=== PATIENT | female | born 1995 | race Caucasian/White ===

== ENCOUNTER 2019-11-24 05:58 | Inpatient (IN) | payer OTHER ==
--- OUTSIDE RECORDS SUMMARY | 2019-11-24 06:01 | XMS REPORT | Continuity of Care Document ---
:1995 External Reference #:[id number] Author Name Kayli Boo MD (transmitted by agent of provider Arabella Hager) Address [address] [facility] [place] [address] Care Team Providers Name Role Phone Adriano Mak MD Care Team Information Hotel Office Manager [phone] Adelfo Chatman M.D. - Family Care Team Information Hotel Office Manager [phone] Medicine Problems Active Problems Provider Date Twin , monochorionic/diamniotic, second Payton Wagner MD Onset: trimester Social History Type Date Description Comments Sex Unknown Tobacco Use Start: Unknown Never Smoked Cigarettes ETOH Use Occasionally consumes alcohol Recreational Drug Use Denies Drug Use Tobacco Use Start: Unknown Patient has never smoked Smoking Status Reviewed: 11/19/19 Patient has never smoked Exercise Type/Frequency Exercises regularly Seat Belt/Car Seat Always uses seat belt Allergies, Adverse Reactions, Alerts Description No Known Drug Allergies Medications Active Medications SIG Qnty Indications Ordering Provider Date PNV-Dha 1 by mouth every Unknown 27-0.6-0.4-300mg day Capsules Aspirin 1 by mouth every Unknown 81mg Chewtabs day Medications Administered in Office Medication SIG Qnty Indications Ordering Provider Date PT SCRN Tbco Id as Non User Kayli Boo MD 11/19/2019 Injection PT SCRN Tbco Id as Non User Astrid Chandler CNM 05/19/2019 Injection No PT Tbco SCRN RNG JEAN PAUL Lay-C 02/24/2019 Injection PT SCRN Tbco Id as Non User DestinyJEAN PAUL Khan-C 02/24/2019 Injection No PT Tbco SCRN RNG DestinyJEAN PAUL Khan-C 02/20/2018 Injection PT SCRN Tbco Id as Non User Destiny NagelFRANK 02/20/2018 Injection Immunizations CPT Code Status Date Vaccine Lot # [id number] Given 09/28/2019 Tetnus, Diptheria Toxoids And Acellular Pertussis, [id number] PT > 7Yrs Old [id number] Given 06/16/2019 Influenza Vaccine Quadrivalent Preser/Antibiotic [id number] Free Im Use Vital Signs Date Vital Result Comment 11/19/2019 12:56pm BP Systolic Recheck 140 mmHg BP Diastolic Recheck 90 mmHg 05/19/2019 10:48am BP Systolic 108 mmHg BP Diastolic 66 mmHg Height 62.25 inches 5'2.25" Weight 218.00 lb BMI (Body Mass Index) 39.5 kg/m2 Last Menstrual Period [id number] 1 Parity 0 Results Test Acquired Date Facility Test Result H/L Range Note CBC Auto 11/22/2019 [facility] White Blood 7.3 10^3/uL Normal 3.5-10.8 [place] [address] Count [phone] Red Blood Count 3.91 10^6/uL Normal 3.70-4.87 Hemoglobin 11.0 g/dL Low 12.0-16.0 Hematocrit 33 % Low 35-47 Mean Corpuscular Volume 85 fL Normal 80-97 Mean Corpuscular Hemoglobin 28 pg Normal 27-31 Mean Corpuscular HGB Conc 33 g/dL Normal 31-36 Red Cell Distribution Width 14 % Normal 10-15 Platelet Count 245 10^3/uL Normal 150-450 Mean Platelet Volume 10.0 fL Normal 7.4-10.4 Abs Neutrophils 5.0 10^3/uL Normal 1.5-7.7 Abs Lymphocytes 1.6 10^3/uL Normal 1.0-4.8 Abs Monocytes 0.4 10^3/uL Normal 0-0.8 Abs Eosinophils 0.2 10^3/uL Normal 0-0.6 Abs Basophils 0.0 10^3/uL Normal 0-0.2 Abs Nucleated RBC 0.0 10^3/uL Granulocyte % 68.9 % Lymphocyte % 21.5 % Monocyte % 6.0 % Eosinophil % 3.0 % Basophil % 0.6 % Nucleated Red Blood Cells % 0.1 Type And Screen 11/22/2019 [facility] Patient [place] [address] [phone] Antibody Screen NEGATIVE CBC With No 11/19/2019 [facility] White Blood 7.6 10^3/uL Normal 3.5-10.8 [place] [address] Count [phone] Red Blood Count 3.73 10^6/uL Normal 3.70-4.87 Hemoglobin 10.7 g/dL Low 12.0-16.0 Hematocrit 32 % Low 35-47 Mean Corpuscular Volume 85 fL Normal 80-97 Mean Corpuscular Hemoglobin 29 pg Normal 27-31 Mean Corpuscular HGB Conc 34 g/dL Normal 31-36 Red Cell Distribution Width 14 % Normal 10-15 Platelet Count 230 10^3/uL Normal 150-450 Mean Platelet Volume 9.9 fL Normal 7.4-10.4 Laboratory test 11/19/2019 [facility] Ast (Sgot) 19 U/L Normal 13-39 1 [place] [address] [phone] Alt 12 U/L Normal 7-52 2 Laboratory test 11/19/2019 [facility] Genital For GRP B SEE RESULT 3 [place] [address] Strep Only BELOW [phone] Tot Prot 24HR 11/12/2019 [facility] Ur TP Concentration 11 mg/ [place] [address] Obstetric [phone] Ur Tot Protein/24Hr Obstetric 280 mg/24Hr High 0-165 Urine Collection Time OB 24 hr Urine Total Volume OB 2550 mL Comp Metabolic 11/11/2019 [facility] Sodium 138 mmol/L Normal 135-145 [place] [address] [phone] Potassium 4.2 mmol/L Normal 3.5-5.0 Chloride 106 mmol/L Normal 101-111 Co2 Carbon Dioxide 22 mmol/L Normal 22-32 Anion Gap 10 mmol/L Normal 2-11 Glucose 81 mg/dL Normal 70-100 Blood Urea Nitrogen 6 mg/dL Normal 6-24 Creatinine 0.71 mg/dL Normal 0.51-0.95 BUN/Creatinine Ratio 8.5 Normal 8-20 Calcium 9.1 mg/dL Normal 8.6-10.3 Total Protein 5.9 g/dL Low 6.4-8.9 Albumin 3.3 g/dL Normal 3.2-5.2 Globulin 2.6 g/dL Normal 2-4 Albumin/Globulin Ratio 1.3 Normal 1-3 Total Bilirubin 0.30 mg/dL Normal 0.2-1.0 Alkaline Phosphatase 111 U/L High 34-104 Alt 13 U/L Normal 7-52 Ast 18 U/L Normal 13-39 Egfr Non- 100.3 >60 Egfr 121.4 >60 4 Laboratory test 11/11/2019 [facility] Uric Acid 6.5 mg/dL Normal 2.3-6.6 5 [place] [address] [phone] CBC With No Diff 11/11/2019 [facility] White 6.3 Normal 3.5- 10.8 [place] [address] Blood 10^3/uL [phone] Count Red Blood Count 3.69 10^6/uL Low 3.70-4.87 Hemoglobin 10.7 g/dL Low 12.0-16.0 Hematocrit 32 % Low 35-47 Mean Corpuscular Volume 87 fL Normal 80-97 Mean Corpuscular Hemoglobin 29 pg Normal 27-31 Mean Corpuscular HGB Conc 34 g/dL Normal 31-36 Red Cell Distribution Width 14 % Normal 10-15 Platelet Count 258 10^3/uL Normal 150-450 Mean Platelet Volume 10.1 fL Normal 7.4-10.4 CBC With No 09/14/2019 [facility] White Blood 8.2 10^3/uL Normal 3.5-10.8 [place] [address] Count [phone] Red Blood Count 3.60 10^6/uL Low 3.70-4.87 Hemoglobin 11.4 g/dL Low 12.0-16.0 Hematocrit 33 % Low 35-47 Mean Corpuscular Volume 92 fL Normal 80-97 Mean Corpuscular Hemoglobin 32 pg High 27-31 Mean Corpuscular HGB Conc 34 g/dL Normal 31-36 Red Cell Distribution Width 13 % Normal 10-15 Platelet Count 308 10^3/uL Normal 150-450 Mean Platelet Volume 8.6 fL Normal 7.4-10.4 Laboratory 09/14/2019 [facility] Glucose 1 HR 121 mg/dL Normal 70-160 6 [place] [address] Post Prandial [phone] Drug Screen 07/13/2019 [facility] Urine None [place] [address] Hydrocodone Detected Detect Clinic [phone] Screen Urine Oxycodone Screen None Detected None Detect Urine Fentanyl Screen None Detected None Detect Urine Methadone Screen None Detected None Detect Urine Buprenorphine Screen None Detected None Detect Urine Amphetamine Screen None Detected None Detect Urine Barbiturates Screen None Detected None Detect Urine Benzodiazepine Screen None Detected None Detect Urine Cannabinoids Screen None Detected None Detect Urine Cocaine Screen None Detected None Detect Urine Opiates Screen None Detected None Detect Urine Phencyclidine Screen None Detected None Detect 7 GC/Chlamydia Dna 07/01/2019 [facility] GCCHL Disclaimer (SEE NOTE) 8 Probe [place] [id number] [phone] Chlamydia trachomatis [place] Negative Negative Neisseria gonorrhoeae (GC) [place] Negative Negative Laboratory test 07/01/2019 [facility] Miscellaneous See Comment 9 [place] [address] Test [phone] Panorama 06/16/2019 Andre Report Summary See Notes Normal 10 Test Report Note See Notes Normal Trisomy 13 Age-Based Risk Fraction <1/02638 Normal 11 Trisomy 13 Risk Score Text <1/10,000 (<0.01 <SEE NOTE> Normal 12 Trisomy 13 Risk Score Fraction <1/43028 Normal Trisomy 13 Result Text Low Risk Normal Trisomy 13 Result Comments See Notes Normal Trisomy 18 Age-Based Risk Fraction 09/7945 Normal Trisomy 18 Risk Score Text <1/10,000 (<0.01 <SEE NOTE> Normal 13 Trisomy 18 Risk Score Fraction <1/23690 Normal Trisomy 18 Result Text Low Risk Normal Trisomy 18 Result Comments See Notes Normal Trisomy 21 Age-Based Risk Fraction 09/3002 Normal Trisomy 21 Risk Score Text <1/10,000 (<0.01 <SEE NOTE> Normal 14 Trisomy 21 Risk Score Fraction <1/20134 Normal Trisomy 21 Result Text Low Risk Normal Trisomy 21 Result Comments See Notes Normal Monosomy X Age-Based Risk Fraction 09/1689 Normal Monosomy X Risk Score <0.01 % Normal Monosomy X Risk Score Text <1/10,000 (<0.01 <SEE NOTE> Normal 15 Monosomy X Risk Score Fraction <1/54811 Normal Monosomy X Result Text Low Risk Normal Monosomy X Result Comments See Notes 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-Based 09/1999 Normal 16 Risk Score 22q11.2 Deletion Syndrome Risk Score 09/8999 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 Risk Score Text 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 Result Text Low Risk 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 Result See Notes Normal Interpretation Zygosity Monozygotic Gender of Fetus Female Gender of Second Fetus Female Fraction (in %) 11.4 % Fraction 11.4% Footnotes See Notes 17 Boiler Plate Text See Notes 18 References See Notes 19 Approvals See Notes 20 Contacts See Notes 21 Urine Culture 06/16/2019 [facility] Urine SEE RESULT 22 [place] [address] Culture BELOW Sensitivities [phone] HIV 1&2 p24 06/16/2019 [facility] HIV 4th [place] [address] Generation [phone] Lead 06/16/2019 [facility] Lead,Venous, 2.4 g/dL 0.0-4.9 23 [place] [address] B [phone] Venous/Capillary Venous Submitting Laboratory Phone [phone] Type And Screen 06/16/2019 [facility] Patient [place] [address] [phone] Antibody Screen NEGATIVE CBC With No 06/16/2019 [facility] White Blood 8.8 10^3/uL Normal 3.5-10.8 [place] [address] Count [phone] Red Blood Count 4.21 10^6/uL Normal 3.70-4.87 Hemoglobin 13.0 g/dL Normal 12.0-16.0 Hematocrit 38 % Normal 35-47 Mean Corpuscular Volume 90 fL Normal 80-97 Mean Corpuscular Hemoglobin 31 pg Normal 27-31 Mean Corpuscular HGB Conc 34 g/dL Normal 31-36 Red Cell Distribution Width 13 % Normal 10-15 Platelet Count 311 10^3/uL Normal 150-450 Mean Platelet Volume 8.4 fL Normal 7.4-10.4 PNL No 06/16/2019 [facility] Rubella Screen Immune Immune 25 [place] [address] [phone] Hemoglobin A1c 5.3 % Normal 4.0-5.6 26 Hepatitis B Surface Ag Nonreactive Nonreactive 27 Syphillis Igg W/Reflex RPR Negative Negative 28 1 [id number] 2 [id number] 3 SEE RESULT BELOW Name: RUPERTO VILA : [address]: Kayli Boo MD Acct: [id number] Unit: [id number] AGE: 24 Location: [facility] Re11/19/19 SEX: F Status: REG REF SPEC: [id number] JORGE LUIS: 11/19/19-[address] [facility] [address]: Kayli Boo MD REQ: [id number] RECD: 11/19/19834 STATUS: COMP _ SOURCE: CER/VAG/RE SPDESC: ORDERED: Grp B Strp Scrn COMMENTS: [id number] QUERIES: Is Patient Penicillin Allergic? N Is patient penicillin allergic and/or sensitivities needed? N Provider Requisition # C77#[id number]_ Procedure Result Reported Site Group B Strep Culture Screen Final 11/21/19- 1028 ML Group B Strep Screen Negative * ML - Main Lab . END OF REPORT DEPARTMENT OF PATHOLOGY, [address] [place] [address] Rio Rahman M.D. Director [facility] # [id number] 4 Because ethnic data is not always readily available, this report includes an eGFR for both -Americans and non- Americans. The National Kidney Disease Education Program (NKDEP) does not endorse the use of the MDRD equation for patients that are not between the ages of 18 and 70, are , have extremes of body size, muscle mass, or nutritional status, or are non- or non-. According to the National Kidney Foundation, irrespective of diagnosis, the stage of the disease is based on the level of kidney function: Stage Description GFR(mL/min/1.73 m(2)) 1 Kidney damage with normal or decreased GFR 90 2 Kidney damage with mild decrease in GFR 60-89 3 Moderate decrease in GFR 30-59 4 Severe decrease in GFR 15-29 5 Kidney failure <15 (or dialysis) 5 [id number] 6 [id number] 7 The specimen was tested at the listed cutoffs: Drug Class Test level (ng/mL) Hydrocodone 300 Oxycodone 100 Fentanyl 1 Methadone 150 Buprenorphine 5 Amphetamines 500 Barbiturates 200 Benzodiazepines 200 Cocaine 150 Cannabinoids 50 Opiates 300 PCP 25 Specimen was received without chain of custody. Results should be used for medical purposes only. 8 As with all diagnostic procedures, the laboratory results obtained should be used in conjunction with other clinical information available to the physician, including confirmation by another method, as applicable. 9 Test Result Flag Unit RefValue Controlled Substance Monitoring, U List Patient's Current UNK Medications ADDITIONAL INFORMATION Accuracy and completeness of declared medications on reports solely dependent on information submitted by client. Creatinine, U 9.8 mg/dL Specific [place] <=1.001 Manually Verified pH 7.1 Oxidants Negative REFERENCE VALUE Cutoff: 200 mg/L Comment Invalid specimen. Amphetamines TNP Drug Immunoassay Panel, U was cancelled on 07/03/2019 at 15:05; Test canceled due to suspected specimen adulteration, substitution, or an invalid specimen. Codeine TNP Targeted Opioid Screen, U was cancelled on 07/03/2019 at 15:06; Test canceled due to suspected specimen adulteration, substitution, or an invalid specimen. Opioid Interpretation TNP Targeted Opioid Screen, U was cancelled on 07/03/2019 at 15:06; Test canceled due to suspected specimen adulteration, substitution, or an invalid specimen. Alprazolam TNP Targeted Benzodiazepine Screen, U was cancelled on 07/03/2019 at 15:06; Test canceled due to suspected specimen adulteration, substitution, or an invalid specimen. Benzodiazepine TNP Interpretation Targeted Benzodiazepine Screen, U was cancelled on 07/03/2019 at 15:06; Test canceled due to suspected specimen adulteration, substitution, or an invalid specimen. Test Performed by: [facility] [address] [place] [address] Manager Leasing: Jay Peng M.D. Ph.D.; CLIA# [id number] 10 LOW RISK 11 <1/10,000 (<0.01%) 12 <1/10,000 (<0.01%) 13 <1/10,000 (<0.01%) 14 <1/10,000 (<0.01%) 15 <1/10,000 (<0.01%) 16 1/2,000 17 Condition tested excludes cases with evidence of and/or placental mosaicism. Prior risk for aneuploidy is based on maternal age and gestational age, where applicable. Panorama risk score is based on a priori risk and results of analysis of circulating placental DNA. Prior risk for microdeletion syndromes, if ordered, are based on overall disease prevalence in the population. This test will not i dentify all deletions associated with each disorder. This test has been validated on full region deletions only and may be unable to detect smaller deletions. 18 Testing Methodology DNA isolated from the maternal blood, which contains placental DNA, is amplified at specific loci using a targeted PCR assay and is sequenced using a high-throughput sequencer. fraction is determi john using a proprietary algorithm incorporating data from single nucleotide polymorphism-based (SNP-based) next-generation sequencing [Amara Brown et al. Obstet Gynecol. 2014 Apr;124(2 Pt 1):210-8]. If the estimated fraction is ???2.8%, sequencing data is analyzed using a proprietary SNP-based algorithm to determine the copy number for chromosomes 13, 18, 21, X and Y [Kris Meade et al. Am J Ob stet Gynecol. 2014 Jul;211(5):527.e1-527.e17]. If ordered, specific microdeletions will be evaluated using similar methodology [Cali BELTRAN et al. Am J Obstet Gynecol. 2015 Oct;212(3):332.e1-9]. If a samp le fails to meet the quality threshold, or the fraction is insufficient , an additional algorithm is utilized to determine whether there is an increased risk for triploidy, trisomy 18 and trisomy 1 3 [Lauren singh al. The Human Genetics Conference. [facility]. January 262016]. However, ???some samples will not produce a result due to failure to meet the necessary quality thresholds. Disclaimers This test has been validated on women with a carr, twin or egg donor of at least nine weeks gestation. A result will not be available for higher order multiples and multiple gestation pre gnancies with an egg donor or surrogate, or bone marrow transplant recipients. Complete test panel is not available for twin gestations and pregnancies achieved with an egg donor or surrogate. For twin pregnancies with a fraction value below the threshold for analysis, a sum of the fractions for both twins will be reported. Findings of unknown significance will not be reported. As this ass ay is a screening test and not diagnostic, false positives and false negatives can occur. High risk test results need diagnostic confirmation by alternative testing methods. Low risk results do not full y exclude the diagnosis of any of the syndromes nor do they exclude the possibility of other chromosomal abnormalities or defects, which are not a part of this test. Potential sources of inaccurat e results include, but are not limited to, mosaicism, low fraction, limitations of current diagnostic techniques, or misidentification of samples. This test will not identify all deletions associa jo-ann with each microdeletion syndrome. This test has been validated on full region deletions only and may be unable to detect smaller deletions. Microdeletion risk score is dependent upon fraction, as deletions on the maternally inherited copy are difficult to identify at lower fractions. Test results should always be interpreted by a clinician in the context of clinical and familial data w ith the availability of genetic counseling when appropriate. The Panorama test was developed by [facility] a laboratory certified under the Clinical Laboratory Improvement Amendments (CLIA). This test has not been cleared or approved by the U.S, Food and Drug Administration (FDA). 19 Please refer to the attached PDF report 20 Test performed by [facility]. [address] [place] [address] CLIA ID #[id number] Nara Garcia Ph.D., [facility], Information Assurance 21 IF THE ORDERING PROVIDER HAS QUESTIONS OR WISHES TO DISCUSS THE RESULTS, PLEASE CONTACT US AT [phone] #3. Ask for the [facility] genetic counselor production supv. 22 SEE RESULT BELOW Name: RUPERTO VILA : [address]: Maksim Moise DO Acct: [id number] Unit: [id number] AGE: 23 Location: [facility] Re06/16/19 SEX: F Status: REG REF SPEC: [id number] JORGE LUIS: 06/16/[address]: Maksim Moise DO REQ: [id number] RECD: 06/16/190632 STATUS: COMP _ SOURCE: URINE SPDESC: ORDERED: Urine Culture COMMENTS: [id number] Urine Source: Random Procedure Result Reported Site Urine Culture Final 06/17/19- 1621 ML No Growth (<1,000 CFU/mL) * ML - Main Lab . END OF REPORT DEPARTMENT OF PATHOLOGY, [address] [place] [address] Rio Rahman M.D. Director [facility] # [id number] 23 ADDITIONAL INFORMATION Testing performed by Inductively Coupled Plasma-Mass Spectrometry (ICP-MS). This test was developed and its performance characteristics determined by [facility] in a manner consistent with CLIA requirements. This test has not been cleared or approved by the U.S. Food and Drug Administration. 24 Test Performed by: [address] [address] Manager Leasing: Jay Peng M.D. Ph.D.; CLIA# [id number] 25 [id number] 26 Therapeutic target for the treatment of diabetes mellitus patients is <7% HBA1C, and in selective patients <6.0%. Please refer to [place] [employer] diabetic care guidelines for further information. 27 [id number] Procedures Date Code Description Status 11/19/2019 20474 Non-Stress Test Completed 11/11/2019 56722 Biophysical Profile Without Non Stress Test Completed 11/11/2019 09667 Echography Uterus Follow-Up Or Repeat Completed 11/11/2019 66325 Ultrasound,Preg,Transabdomonal;Each Additional Gestation Completed 11/04/2019 88766 Non-Stress Test Completed 10/28/2019 53305 Biophysical Profile Without Non Stress Test Completed 10/28/2019 27434 Echography Uterus Follow-Up Or Repeat Completed 10/28/2019 06477 Ultrasound,Preg,Transabdomonal;Each Additional Gestation Completed 10/21/2019 23471 Non-Stress Test Completed 10/14/2019 30241 Echography Uterus Follow-Up Or Repeat Completed 10/14/2019 66891 Ultrasound,Preg,Transabdomonal;Each Additional Gestation Completed 09/28/2019 48729 Echography Uterus Follow-Up Or Repeat Completed 09/28/2019 41106 Ultrasound,Preg,Transabdomonal;Each Additional Gestation Completed 09/14/2019 38010 Nuchal Translucency Ultrasound /First Gestation Completed 09/14/2019 47693 Echography Uterus Follow-Up Or Repeat Completed 08/27/2019 34205 Echography Uterus Follow-Up Or Repeat Completed 08/27/2019 03871 Echography Uterus Follow-Up Or Repeat Completed 08/27/2019 16570 Ultrasound,Preg,Transabdomonal;Each Additional Gestation Completed 08/27/2019 51666 Ultrasound,Preg,Transabdomonal;Each Additional Gestation Completed 08/12/2019 58280 Echography Uterus Follow-Up Or Repeat Completed 07/27/2019 82306 Echography Uterus Follow-Up Or Repeat Completed 07/27/2019 78324 Ultrasound,Preg,Transabdomonal;Each Additional Gestation Completed 07/13/2019 50648 Ultrasound,Preg,Transabdomonal;Each Additional Gestation Completed 07/13/2019 12001 Echography Uterus Complete Completed 07/01/2019 43306 Echography Uterus Follow-Up Or Repeat Completed 07/01/2019 70630 Ultrasound,Preg,Transabdomonal;Each Additional Gestation Completed 06/16/2019 31347 Echography Uterus Follow-Up Or Repeat Completed 06/16/2019 07856 Ultrasound,Preg,Transabdomonal;Each Additional Gestation Completed Medical Devices Description No Information Available Encounters Type Date Location Provider Dx Diagnosis Office Visit 11/19/2019 [facility] Kayliamita Boo, O30.033 Twin , 10:40a MD marreroriobahman/lulin iotic, third trimester Z01.818 Encounter for other preprocedural examination Assessments Date Code Description Provider 11/19/2019 O30.033 Twin , monochorionic/diamniotic, Kayli Boo MD third trimester 11/19/2019 Z01.818 Encounter for other preprocedural Kayli Boo MD examination 11/11/2019 O30.033 Twin , monochorionic/diamniotic, Arron Hand M.D. third trimester 11/11/2019 O30.033 Twin , monochorionic/diamniotic, Arron Hand M.D. third trimester 11/11/2019 O30.033 Twin , monochorionic/diamniotic, Ultrasounds third trimester 11/04/2019 O30.033 Twin , monochorionic/diamniotic, Payton Wagner MD third trimester 10/28/2019 O30.033 Twin , monochorionic/diamniotic, Maksim Moise JR , DO third trimester 10/28/2019 O30.033 Twin , monochorionic/diamniotic, Maksim Moise JR , DO third trimester 10/28/2019 O30.033 Twin , monochorionic/diamniotic, Ultrasounds third trimester 10/21/2019 O30.033 Twin , monochorionic/diamniotic, Arron Hand M.D. third trimester 10/14/2019 O30.032 Twin , monochorionic/diamniotic, Kayli Boo MD second trimester 10/14/2019 O30.033 Twin , monochorionic/diamniotic, Kayli Boo MD third trimester 10/14/2019 O30.032 Twin , monochorionic/diamniotic, Ultrasounds second trimester 09/28/2019 O30.032 Twin , monochorionic/diamniotic, Payton Wagner MD second trimester 09/28/2019 Z23 Encounter for immunization Payton Wagner MD 09/28/2019 O30.033 Twin , monochorionic/diamniotic, Payton Wagner MD third trimester 09/28/2019 O30.032 Twin , monochorionic/diamniotic, Ultrasounds second trimester 09/14/2019 Z14.8 Genetic carrier of other disease Arron Hand M.D. 09/14/2019 Z36.9 Encounter for screening, Payton Wagner MD unspecified 09/14/2019 O30.032 Twin , monochorionic/diamniotic, Arron Hand M.D. second trimester 09/14/2019 O30.032 Twin , monochorionic/diamniotic, Ultrasounds second trimester 09/14/2019 O30.032 Twin , monochorionic/diamniotic, Arron Hand M.D. second trimester 09/14/2019 Z36.9 Encounter for screening, Laboratory unspecified 08/27/2019 O30.032 Twin , monochorionic/diamniotic, Maksim Moise JR , DO second trimester 08/27/2019 O30.032 Twin , monochorionic/diamniotic, Maksim Moise JR , DO second trimester 08/27/2019 O30.032 Twin , monochorionic/diamniotic, Ultrasounds second trimester 08/12/2019 O30.032 Twin , monochorionic/diamniotic, Payton Wagner MD second trimester 08/12/2019 O30.032 Twin , monochorionic/diamniotic, Payton Wagner MD second trimester 08/12/2019 O30.032 Twin , monochorionic/diamniotic, Ultrasounds second trimester 07/27/2019 O30.032 Twin , monochorionic/diamniotic, Maksim Moise JR , DO second trimester 07/27/2019 O30.032 Twin , monochorionic/diamniotic, Maksim Moise JR , DO second trimester 07/27/2019 O30.032 Twin , monochorionic/diamniotic, Ultrasounds second trimester 07/13/2019 Z36.3 Encounter for screening for Brigette Olea MD malformations 07/13/2019 O30.032 Twin , monochorionic/diamniotic, Brigette Olea MD second trimester 07/13/2019 Z36.3 Encounter for screening for Ultrasounds malformations 07/01/2019 O30.032 Twin , monochorionic/diamniotic, Maksim Moise JR , DO second trimester 07/01/2019 O30.032 Twin , monochorionic/diamniotic, Maksim Moise JR , DO second trimester 07/01/2019 O30.032 Twin , monochorionic/diamniotic, Ultrasounds second trimester 06/16/2019 Z36.9 Encounter for screening, Payton Wagner MD unspecified 06/16/2019 O30.032 Twin , monochorionic/diamniotic, Maksim Moise JR , DO second trimester 06/16/2019 Z23 Encounter for immunization Payton Wagnre MD 06/16/2019 O30.032 Twin , monochorionic/diamniotic, Maksim Moise JR , DO second trimester 06/16/2019 Z36.9 Encounter for screening, Laboratory unspecified 06/16/2019 Z23 Encounter for immunization Laboratory 06/16/2019 O30.032 Twin , monochorionic/diamniotic, Ultrasounds second trimester Plan of Treatment Future Appointment(s):12/29/2019 3:30 pm - Kayli Boo MD at [facility]12/01/2019 11:00 am - Ruperto Prieto CNM at [facility]11/24/2019 7:45 am - Arron Hand M.D. at [facility] O R011/24/2019 7:45 am - Kayli Boo MD at [facility] O R011/19/2019 - Kayli Boo MDO30.033 Twin , monochorionic/diamniotic, third trimesterComments:Pt with gestational hypertension and had normal 24 hour urine collection last week. Pt with elevatedBP today so will check lab work again today. Pt is to f/u for preop on Saturday this week and has primary scheduled at 11/24/19 at 37 weeks. Pt accepts risk associate with section to include but not limited to infection bleeding damage to internal organs pain scarring need for further surgery. consent form personally reviewed and signed with pt. All questions answered.Z01.818 Encounter for other preprocedural examination Functional Status Functional Condition Comment Date Status .None Active Mental Status Description No Information Available Referrals Refer to Reason for Referral Status Appt Date Center Pt with mono-di twins at 22 wks. Cardiac views Closed 09/17 have been inadequate for the past two sonos, so she needs a Level 2. [address] [place], [place].[address] [phone]
--- OUTSIDE RECORDS SUMMARY | 2019-11-24 06:01 | XMS REPORT | Continuity of Care Document ---
:1995 External Reference #:[id number] Author Name Kayli Boo MD (transmitted by agent of provider Cece Green) Address [address] [facility] [place] [address] Care Team Providers Name Role Phone Adriano Mak MD Care Team Information [employer] [phone] Adelfo Chatman M.D. - Family Care Team Information [employer] Medicine Problems Active Problems Provider Date Twin , monochorionic/diamniotic, second Payton Wagner MD Onset: trimester Social History Type Date Description Comments Sex Unknown Tobacco Use Start: Unknown Never Smoked Cigarettes ETOH Use Occasionally consumes alcohol Recreational Drug Use Denies Drug Use Tobacco Use Start: Unknown Patient has never smoked Exercise Type/Frequency Exercises [...] 05/19/2019 Injection No PT Tbco SCRN RNG Destiny Nagel, ANP-C 02/24/2019 Injection PT SCRN Tbco Id as Non User Destiny Shona, ANP-C 02/24/2019 Injection No PT Tbco SCRN RNG Destinytomasz Nagel, ANP-C 02/20/2018 Injection PT SCRN Tbco Id as Non User Destiny Nagel, ANP-C 02/20/2018 Injection Immunizations CPT Code Status Date Vaccine Lot # [id number] Given 09/28/2019 Tetnus, Diptheria Toxoids And Acellular Pertussis, DC924 PT > 7Yrs Old [address] Given 06/16/2019 Influenza Vaccine Quadrivalent Preser/Antibiotic [id number] Free Im Use Vital Signs Date Vital Result Comment 05/19/2019 10:48am BP Systolic 108 mmHg BP Diastolic 66 mmHg Height 62.25 inches 5'2.25" Weight 218.00 lb BMI (Body Mass Index) 39.5 kg/m2 Last Menstrual Period 8971035 1 Parity 0 02/24/2019 7:44am BP Systolic 112 mmHg BP Diastolic 80 mmHg Height 62.25 inches 5'2.25" Weight 223.00 lb BMI (Body Mass Index) 40.5 kg/m2 Last Menstrual Period 2334766 0 Parity 0 Results Test Acquired Date Facility Test Result H/L Range Note Tot Prot 24HR 11/12/2019 [facility] Ur TP 11 mg/[place] [address] Concentration [phone] Obstetric Ur Tot Protein/24Hr Obstetric 280 mg/24Hr High 0-165 Urine Collection Time OB 24 hr Urine Total Volume OB 2550 mL Comp Metabolic 11/11/2019 [facility] Sodium 138 mmol/L Normal 135-145 [place] [address] [phone] Potassium 4.2 mmol/L Normal 3.5-5.0 Chloride 106 [...] Egfr Non- 100.3 >60 Egfr 121.4 >60 1 Laboratory test 11/11/2019 [facility] Uric Acid 6.5 mg/dL Normal 2.3-6.6 2 [place] [address] [phone] CBC With No Diff 11/11/2019 [facility] White 6.3 Normal 3.5- 10.8 [place] [address] Blood 10^3/uL [phone] Count Red Blood Count 3.69 10^6/uL Low [...] fL Normal 7.4-10.4 CBC With No 09/14/2019 [facility] White Blood 8.2 10^3/uL Normal 3.5-10.8 [place] [address] Count [phone] Red Blood Count 3.60 10^6/uL Low 3.70-4.87 Hemoglobin 11.4 g/dL Low 12.0-16.0 Hematocrit 33 % Low 35-47 Mean Corpuscular Volume 92 fL Normal 80-97 Mean Corpuscular Hemoglobin 32 pg High 27-31 Mean Corpuscular HGB Conc 34 g/dL Normal 31-36 Red Cell Distribution Width 13 % Normal 10-15 Platelet Count 308 10^3/uL Normal 150-450 Mean Platelet Volume 8.6 fL Normal 7.4-10.4 Laboratory 09/14/2019 [facility] Glucose 1 HR 121 mg/dL Normal 70-160 3 [place] [address] Post Prandial [phone] Drug Screen 07/13/2019 [facility] Urine [place] [address] Hydrocodone Detected Detect [facility] [phone] Screen Urine Oxycodone Screen None Detected None [...] Urine Phencyclidine Screen None Detected None Detect 4 GC/Chlamydia Dna 07/01/2019 [facility] GCCHL Disclaimer (SEE NOTE) [address] [place] [address] [phone] Chlamydia trachomatis Lachelle Negative Negative Neisseria gonorrhoeae (GC) Lachelle Negative Negative Laboratory test 07/01/2019 [facility] Miscellaneous Test See Comment [address] [place] [address] [phone] Panorama 06/16/2019 Andre Report Summary See Notes Normal 7 Test Report Note See Notes Normal Trisomy 13 Age-Based Risk Fraction <1/07209 Normal 8 Trisomy 13 Risk Score Text <1/10,000 (<0.01 <SEE NOTE> Normal 9 Trisomy 13 Risk Score Fraction <1/97228 Normal Trisomy 13 Result Text Low Risk Normal Trisomy 13 Result Comments See Notes Normal Trisomy 18 Age-Based Risk Fraction 09/7945 Normal Trisomy 18 Risk Score Text <1/10,000 (<0.01 <SEE NOTE> Normal 10 Trisomy 18 Risk Score Fraction <1/29293 Normal Trisomy 18 Result Text Low Risk Normal Trisomy 18 Result Comments See Notes Normal Trisomy 21 Age-Based Risk Fraction 09/3002 Normal Trisomy 21 Risk Score Text <1/10,000 (<0.01 <SEE NOTE> Normal 11 Trisomy 21 Risk Score Fraction <1/39766 Normal Trisomy 21 Result Text Low Risk Normal Trisomy 21 Result Comments See Notes Normal Monosomy X Age-Based Risk Fraction 09/1689 Normal Monosomy X Risk Score <0.01 % Normal Monosomy X Risk Score Text <1/10,000 (<0.01 <SEE NOTE> Normal 12 Monosomy X Risk Score Fraction <1/58010 Normal Monosomy X Result Text Low Risk Normal Monosomy X Result Comments See Notes 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-Based 09/1999 Normal 13 Risk Score 22q11.2 Deletion Syndrome Risk Score 09/8999 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 Risk Score Text 19,000 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 Result Text Low Risk 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0-4.9 20 [place] [address] B [phone] Venous/Capillary Venous Submitting Laboratory Phone [phone] Type And Screen 06/16/2019 [facility] Patient [place] [address] [phone] Antibody Screen NEGATIVE CBC With No 06/16/2019 [facility] White Blood 8.8 10^3/uL Normal 3.5-10.8 [place] [address] Count [phone] Red Blood Count 4.21 10^6/uL Normal 3.70-4.87 Hemoglobin 13.0 g/dL Normal 12.0-16.0 Hematocrit 38 % Normal 35-47 Mean Corpuscular Volume 90 fL Normal 80-97 Mean Corpuscular Hemoglobin 31 pg Normal 27-31 Mean Corpuscular HGB Conc 34 g/dL Normal 31-36 Red Cell Distribution Width 13 % Normal 10-15 Platelet Count 311 10^3/uL Normal 150-450 Mean Platelet Volume 8.4 fL Normal 7.4-10.4 PNL No 06/16/2019 [facility] Rubella Screen Immune Immune 22 [place] [address] [phone] Hemoglobin A1c 5.3 % Normal 4.0-5.6 23 Hepatitis B Surface Ag Nonreactive Nonreactive 24 Syphillis Igg W/Reflex RPR Negative Negative 25 1 Because ethnic data is not always readily [...] 15-29 5 Kidney failure <15 (or dialysis) 2 [id number] 3 [id number] 4 The specimen was tested at the listed cutoffs: Drug Class Test level (ng/mL) Hydrocodone 300 Oxycodone 100 Fentanyl 1 Methadone 150 Buprenorphine 5 Amphetamines 500 Barbiturates 200 Benzodiazepines 200 Cocaine 150 Cannabinoids 50 Opiates 300 PCP 25 Specimen was received without chain of custody. Results should be used for medical purposes only. 5 As with all diagnostic procedures, the laboratory results obtained should be used in conjunction with other clinical information available to the physician, including confirmation by another method, as applicable. 6 Test Result Flag Unit RefValue Controlled Substance Monitoring, U List Patient's Current UNK Medications ADDITIONAL INFORMATION Accuracy and completeness of declared medications on reports solely dependent on information submitted by client. Creatinine, U 9.8 mg/dL Specific Mcdaniel <=1.001 Manually Verified pH 7.1 Oxidants Negative [...] or an invalid specimen. Test Performed by: [place] [address] Furnace Puncher: Jay Peng M.D. Ph.D.; CLIA# [id number] 7 LOW RISK 8 <1/10,000 (<0.01%) 9 <1/10,000 (<0.01%) 10 <1/10,000 (<0.01%) 11 <1/10,000 (<0.01%) 12 <1/10,000 (<0.01%) 13 1/2,000 14 Condition tested excludes cases with evidence of [...] may be unable to detect smaller deletions. 15 Testing Methodology DNA isolated from the maternal blood, which contains placental DNA, is amplified at specific loci using a targeted PCR assay and is sequenced using a high-throughput sequencer. fraction is determi john using a proprietary algorithm incorporating data from single nucleotide polymorphism-based (SNP-based) next-generation sequencing [Amara E et al. Obstet Gynecol. 2014 Apr;124(2 Pt [...] [Lauren singh al. The Human Genetics Conference. [place], [place]. January 26-2016]. However, ???some samples will not produce a [...] appropriate. The Panorama test was developed by [facility] a laboratory certified under the Clinical Laboratory Improvement Amendments (CLIA). This test has not been cleared or approved by the U.S, Food and Drug Administration (FDA). 16 Please refer to the attached PDF report 17 Test performed by [facility]. [address] [place] [address] CLIA ID #[id number] Nara Garcia Ph.D., [facility], Advertising Copy Writer 18 IF THE ORDERING PROVIDER HAS QUESTIONS OR WISHES TO DISCUSS THE RESULTS, PLEASE CONTACT US AT [phone] #[phone]. Ask [facility] the [facility] iron guardrail installer. 19 SEE RESULT BELOW Name: CADENCERUPERTO : [address]: Maksim Moise DO Acct: [id number] Unit: [id number] AGE: 23 Location: [facility] Re06/16/19 SEX: F Status: REG REF SPEC: [id number] JORGE LUIS: 06/16/[address]: Maksim Moise DO REQ: [id number] RECD: 06/16/190 STATUS: COMP _ SOURCE: URINE SPDESC: ORDERED: Urine Culture COMMENTS: [id number] Urine Source: Random Procedure Result Reported Site Urine Culture Final 06/17/19- 162 ML No Growth (<1,000 CFU/mL) * ML - Main Lab . END OF REPORT DEPARTMENT OF PATHOLOGY, [address] [place] [address] Rio Rahman M.D. Director [facility] # [id number] 20 ADDITIONAL INFORMATION Testing performed by Inductively Coupled Plasma-Mass Spectrometry (ICP-MS). This test was developed and its performance characteristics determined by [facility] in a manner consistent with CLIA requirements. This test has not been cleared or approved by the U.S. Food and Drug Administration. 21 Test Performed by: [facility] [address] [place] [address] Furnace Puncher: Jay Peng M.D. Ph.D.; CLIA# [id number] 22 [id number] 23 Therapeutic target for the treatment of diabetes mellitus patients is <7% HBA1C, and in selective patients <6.0%. Please refer to [place] [employer] diabetic care guidelines for further information. 24 [id number] 25 [id number] Procedures Date Code Description Status 11/11/2019 38549 Biophysical Profile Without Non Stress Test Completed 11/11/2019 51861 Echography Uterus Follow-Up Or Repeat Completed 11/11/2019 45116 Ultrasound,Preg,Transabdomonal;Each Additional Gestation Completed 11/04/2019 20975 Non-Stress Test Completed 10/28/2019 59730 Biophysical Profile Without Non Stress Test Completed 10/28/2019 95275 Echography Uterus Follow-Up Or Repeat Completed 10/28/2019 36354 Ultrasound,Preg,Transabdomonal;Each Additional Gestation Completed 10/21/2019 72689 Non-Stress Test Completed 10/14/2019 08306 Echography Uterus Follow-Up Or Repeat Completed 10/14/2019 58610 Ultrasound,Preg,Transabdomonal;Each Additional Gestation Completed 09/28/2019 11660 Echography Uterus Follow-Up Or Repeat Completed 09/28/2019 96789 Ultrasound,Preg,Transabdomonal;Each Additional Gestation Completed 09/14/2019 42211 Nuchal Translucency Ultrasound /First Gestation Completed 09/14/2019 16967 Echography Uterus Follow-Up Or Repeat Completed 08/27/2019 65846 Echography Uterus Follow-Up Or Repeat Completed 08/27/2019 40553 Echography Uterus Follow-Up Or Repeat Completed 08/27/2019 72866 Ultrasound,Preg,Transabdomonal;Each Additional Gestation Completed 08/27/2019 25581 Ultrasound,Preg,Transabdomonal;Each Additional Gestation Completed 08/12/2019 70895 Echography Uterus Follow-Up Or Repeat Completed 07/27/2019 83101 Echography Uterus Follow-Up Or Repeat Completed 07/27/2019 29515 Ultrasound,Preg,Transabdomonal;Each Additional Gestation Completed 07/13/2019 83079 Ultrasound,Preg,Transabdomonal;Each Additional Gestation Completed 07/13/2019 82274 Echography Uterus Complete Completed 07/01/2019 04882 Echography Uterus Follow-Up Or Repeat Completed 07/01/2019 53785 Ultrasound,Preg,Transabdomonal;Each Additional Gestation Completed 06/16/2019 98764 Echography Uterus Follow-Up Or Repeat Completed 06/16/2019 49226 Ultrasound,Preg,Transabdomonal;Each Additional Gestation Completed Medical Devices Description No Information Available Encounters Description No Information Available Assessments Date Code Description Provider 11/11/2019 O30.033 Twin , monochorionic/diamniotic, Arron Hand [...] trimester 06/16/2019 Z23 Encounter for immunization Payton Wagner MD 06/16/2019 O30.032 Twin , monochorionic/diamniotic, Maksim Moise JR , DO second trimester 06/16/2019 Z36.9 Encounter for screening, Laboratory unspecified 06/16/2019 Z23 Encounter for immunization Laboratory 06/16/2019 O30.032 Twin , monochorionic/diamniotic, Ultrasounds second trimester Plan of Treatment Future Appointment(s):12/29/2019 3:30 pm - Kayli Boo MD at [facility]12/01/2019 11:00 am - Ruperto Prieto CNM at [facility]11/24/2019 7:45 am - Arron Hand M.D. at [facility] R011/24/2019 7:45 am - Kayli Boo MD at [facility] R Functional Status Functional Condition Comment Date Status .None Active Mental Status Description No Information Available Referrals Refer to Reason for Referral Status Appt Date Center Pt with mono-di twins at 22 wks. Cardiac views Closed 09/17 have been inadequate for the past two sonos, so she needs a Level 2. [facility] [place] [phone]
--- OUTSIDE RECORDS SUMMARY | 2019-11-24 06:02 | XMS REPORT | Continuity of Care Document ---
:1995 External Reference #:[id number] Author Name Arron Hand M.D. 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 Medicine Problems Active Problems Provider Date Twin [...] Injection No PT Tbco SCRN RNG Destiny Shona, ANP-C 02/24/2019 Injection PT SCRN Tbco Id as Non User Destiny Shona, ANP-C 02/24/2019 Injection No PT Tbco SCRN RNG Destiny Shona, ANP-C 02/20/2018 Injection PT SCRN Tbco Id as Non User Destiny Shona, ANP-C 02/20/2018 Injection Immunizations CPT Code Status Date Vaccine Lot # [id number] Given 09/28/2019 Tetnus, Diptheria Toxoids And Acellular Pertussis, [id number] PT > 7Yrs Old [address] Given 06/16/2019 Influenza Vaccine Quadrivalent Preser/Antibiotic [id number] Free Im Use Vital Signs Date Vital Result Comment 05/19/2019 10:48am BP Systolic 108 mmHg BP Diastolic 66 mmHg Height 62.25 inches 5'2.25" Weight 218.00 lb BMI (Body Mass Index) 39.5 kg/m2 Last Menstrual Period 8750469 1 Parity 0 02/24/2019 7:44am BP Systolic 112 mmHg BP Diastolic 80 mmHg Height 62.25 inches 5'2.25" Weight 223.00 lb BMI (Body Mass Index) 40.5 kg/m2 Last Menstrual Period 1600520 0 Parity 0 Results Test Acquired Date Facility Test Result H/L Range Note Laboratory test 11/11/2019 [facility] Uric Acid <pending> [place] [address] [phone] CBC With No Diff 09/14/2019 [facility] White 8.2 10^3/uL Normal 3.5-10.8 [place] [address] Blood [phone] Count Red Blood Count 3.60 10^6/uL Low 3.70-4.87 Hemoglobin 11.4 g/dL Low 12.0-16.0 Hematocrit 33 % Low 35-47 Mean Corpuscular Volume 92 fL Normal 80-97 Mean Corpuscular Hemoglobin 32 pg High 27-31 Mean Corpuscular HGB Conc 34 g/dL Normal 31-36 Red Cell Distribution Width 13 % Normal 10-15 Platelet Count 308 10^3/uL Normal 150-450 Mean Platelet Volume 8.6 fL Normal 7.4-10.4 Laboratory 09/14/2019 [facility] Glucose 1 HR 121 mg/dL Normal 70-160 1 [place] [address] Post Prandial [phone] Drug Screen 07/13/2019 [facility] Urine None [place] [address] Hydrocodone Detected Detect [facility] [phone] Screen Urine Oxycodone Screen None Detected None [...] Urine Phencyclidine Screen None Detected None Detect 2 GC/Chlamydia Dna 07/01/2019 [facility] GCCHL Disclaimer (SEE NOTE) [address] [place] [address] [phone] Chlamydia trachomatis Lachelle Negative Negative Neisseria gonorrhoeae (GC) Lachelle Negative Negative Laboratory test 07/01/2019 [facility] Miscellaneous Test See Comment [address] [place] [address] [phone] Panorama 06/16/2019 Andre Report Summary See Notes Normal 5 Test Report Note See Notes Normal Trisomy 13 Age-Based Risk Fraction <1/47542 Normal 6 Trisomy 13 Risk Score Text <1/10,000 (<0.01 <SEE NOTE> Normal 7 Trisomy 13 Risk Score Fraction <1/56828 Normal Trisomy 13 Result Text Low Risk Normal Trisomy 13 Result Comments See Notes Normal Trisomy 18 Age-Based Risk Fraction 09/7945 Normal Trisomy 18 Risk Score Text <1/10,000 (<0.01 <SEE NOTE> Normal 8 Trisomy 18 Risk Score Fraction <1/08866 Normal Trisomy 18 Result Text Low Risk Normal Trisomy 18 Result Comments See Notes Normal Trisomy 21 Age-Based Risk Fraction 09/3002 Normal Trisomy 21 Risk Score Text <1/10,000 (<0.01 <SEE NOTE> Normal 9 Trisomy 21 Risk Score Fraction <1/19417 Normal Trisomy 21 Result Text Low Risk Normal Trisomy 21 Result Comments See Notes Normal Monosomy X Age-Based Risk Fraction 09/1689 Normal Monosomy X Risk Score <0.01 % Normal Monosomy X Risk Score Text <1/10,000 (<0.01 <SEE NOTE> Normal 10 Monosomy X Risk Score Fraction <1/68930 Normal Monosomy X Result Text Low Risk Normal Monosomy X Result Comments See Notes 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-Based 09/1999 Normal 11 Risk Score 22q11.2 Deletion Syndrome Risk Score 09/8999 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 Risk Score Text 19,000 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 Result Text Low Risk 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 Result See Notes Normal Interpretation Zygosity Monozygotic Gender of Fetus Female Gender of Second Fetus Female Fraction (in %) 11.4 % Fraction 11.4% Footnotes See Notes 12 Boiler Plate Text See Notes 13 References See Notes 14 Approvals See Notes 15 Contacts See Notes 16 Urine Culture 06/16/2019 [facility] Urine SEE RESULT 17 [place] [address] Culture BELOW Sensitivities [phone] HIV 1&2 p24 06/16/2019 [facility] HIV 4th Nonreactive [place] [address] Generation [phone] Lead 06/16/2019 [facility] Lead,Venous, 2.4 g/dL 0.0-4.9 18 [place] [address] B [phone] Venous/Capillary Venous Submitting Laboratory Phone [phone] Type And Screen 06/16/2019 [facility] Patient Blood [place] [address] [phone] Antibody Screen NEGATIVE CBC With No 06/16/2019 [facility] White Blood 8.8 10^3/uL Normal 3.5-10.8 [place] [address] Count [phone] Red Blood Count 4.21 10^6/uL Normal 3.70-4.87 Hemoglobin 13.0 g/dL Normal 12.0-16.0 Hematocrit 38 % Normal 35-47 Mean Corpuscular Volume 90 fL Normal 80-97 Mean Corpuscular Hemoglobin 31 pg Normal 27-31 Mean Corpuscular HGB Conc 34 g/dL Normal 31-36 Red Cell Distribution Width 13 % Normal 10-15 Platelet Count 311 10^3/uL Normal 150-450 Mean Platelet Volume 8.4 fL Normal 7.4-10.4 PNL No 06/16/2019 [facility] Rubella Screen Immune Immune 20 [place] [address] [phone] Hemoglobin A1c 5.3 % Normal 4.0-5.6 21 Hepatitis B Surface Ag Nonreactive Nonreactive 22 Syphillis Igg W/Reflex RPR Negative Negative 23 Urine Culture And 05/19/2019 [facility] Urine Culture SEE RESULT 24 [place] [address] BELOW [phone] 1 [id number] 2 The specimen was tested at the listed cutoffs: Drug Class Test level (ng/mL) Hydrocodone 300 Oxycodone 100 Fentanyl 1 Methadone 150 Buprenorphine 5 Amphetamines 500 Barbiturates 200 Benzodiazepines 200 Cocaine 150 Cannabinoids 50 Opiates 300 PCP 25 Specimen was received without chain of custody. Results should be used for medical purposes only. 3 As with all diagnostic procedures, the laboratory results obtained should be used in conjunction with other clinical information available to the physician, including confirmation by another method, as applicable. 4 Test Result Flag Unit RefValue Controlled Substance Monitoring, U List Patient's Current UNK Medications ADDITIONAL INFORMATION Accuracy and completeness of declared medications on reports solely dependent on information submitted by client. Creatinine, U 9.8 mg/dL Specific Banner <=1.001 Manually Verified pH 7.1 Oxidants Negative REFERENCE VALUE Cutoff: 200 mg/L Comment Invalid specimen. Amphetamines TNP Drug Immunoassay Panel, U was cancelled on 07/03/2019 at 15:05; Test canceled due to suspected specimen adulteration, substitution, or an invalid specimen. Codeine [place] Targeted Opioid Screen, U was cancelled on [...] or an invalid specimen. Test Performed by: [place] [address] Wrapping Machine Tender: Jay Peng M.D. Ph.D.; CLIA# [id number] 5 LOW RISK 6 <1/10,000 (<0.01%) 7 <1/10,000 (<0.01%) 8 <1/10,000 (<0.01%) 9 <1/10,000 (<0.01%) 10 <1/10,000 (<0.01%) 11 1/2,000 12 Condition tested excludes cases with evidence of [...] may be unable to detect smaller deletions. 13 Testing Methodology DNA isolated from the maternal [...] et al. Am J Obstet Gynecol. 2015 Mar;212(3):332.e1-9]. If a samp le fails to meet the quality threshold, or the fraction is insufficient , an additional algorithm is utilized to determine whether there is an increased risk for triploidy, trisomy 18 and trisomy 1 3 [Lauren et al. The Human Genetics Conference. [place], [place]. January 26-2016]. However, ???some samples will not [...] appropriate. The Panorama test was developed by [facility] a laboratory certified under the Clinical Laboratory Improvement Amendments (CLIA). This test has not been cleared or approved by the U.S, Food and Drug Administration (FDA). 14 Please refer to the attached PDF report 15 Test performed by [facility]. [address] [place] [address] CLIA ID #[id number] Nara Garcia Ph.D., [facility], Parachute Panel Joiner 16 IF THE ORDERING PROVIDER HAS QUESTIONS OR WISHES TO DISCUSS THE RESULTS, PLEASE CONTACT US AT [phone] #3. Ask for the [facility] genetic counselor loss prevention consultant. 17 SEE RESULT BELOW Name: RUPERTO VILA : [address]: Maksim Moise DO Acct: [id number] Unit: [id number] AGE: 23 Location: [facility] Re06/16/19 SEX: F Status: REG REF SPEC: [id number] JORGE LUIS: 06/16/199389 SUBM DR: Maksim Moise DO REQ: [id number] RECD: 06/16/197540 STATUS: COMP _ SOURCE: URINE SPDESC: ORDERED: Urine Culture COMMENTS: [id number] Urine Source: Random Procedure Result Reported Site Urine Culture Final 06/17/19- 1621 ML No Growth (<1,000 CFU/mL) * ML - [facility] . END OF REPORT DEPARTMENT OF PATHOLOGY, [address] [place] [address] Rio Rahman M.D. Director [facility] # [id number] 18 ADDITIONAL INFORMATION Testing performed by Inductively Coupled Plasma-Mass Spectrometry (ICP-MS). This test was developed and its performance characteristics determined by [facility] in a manner consistent with CLIA requirements. This test has not been cleared or approved by the U.S. Food and Drug Administration. 19 Test Performed by: [address] [address] Wrapping Machine Tender: Jay Peng M.D. Ph.D.; CLIA# [id number] 20 [id number] 21 Therapeutic target for the treatment of diabetes mellitus patients is <7% HBA1C, and in selective patients <6.0%. Please refer to [place] [employer] diabetic care guidelines for further information. 22 [id number] 23 [id number] 24 SEE RESULT BELOW Name: RUPERTO JETT : [address]: Astrid Chandler CNM Acct: [id number] Unit: [id number] AGE: 23 Location: [facility] Re05/19/19 SEX: F Status: REG REF SPEC: [id number] JORGE LUIS: 05/19/19-[address]: Astrid Chandler CNM REQ: [id number] RECD: 05/19/19 STATUS: COMP _ SOURCE: URINE SPDESC: ORDERED: Urine Culture COMMENTS: [id number] Urine Source: Random Procedure Result Reported Site Urine Culture Final 05/21/19- 09 ML Mixed upon extended incubation. Suggest resubmission. * ML - [facility] . END OF REPORT DEPARTMENT OF PATHOLOGY, [address] [place] [address] Rio Rahman M.D. Director [facility] # [id number] Procedures Date Code Description Status 11/11/201954607 Biophysical Profile Without Non Stress Test Completed 11/11/201971150 Echography Uterus Follow-Up Or Repeat Completed 11/11/2019 78759 Ultrasound,Preg,Transabdomonal;Each Additional Gestation Completed 11/04/2019 02505 Non-Stress Test Completed 10/28/201979076 Biophysical Profile Without Non Stress Test Completed 10/28/201922652 Echography Uterus Follow-Up Or Repeat Completed 10/28/2019 76958 Ultrasound,Preg,Transabdomonal;Each Additional Gestation Completed 10/21/2019 98129 Non-Stress Test Completed 10/14/2019 04562 Echography Uterus Follow-Up Or Repeat Completed 10/14/2019 78602 Ultrasound,Preg,Transabdomonal;Each Additional Gestation Completed 09/28/2019 70943 Echography Uterus Follow-Up Or Repeat Completed 09/28/2019 34245 Ultrasound,Preg,Transabdomonal;Each Additional Gestation Completed 09/14/2019 84869 Nuchal Translucency Ultrasound /First Gestation Completed 09/14/2019 30678 Echography Uterus Follow-Up Or Repeat Completed 08/27/2019 22125 Echography Uterus Follow-Up Or Repeat Completed 08/27/2019 72446 Echography Uterus Follow-Up Or Repeat Completed 08/27/2019 25338 Ultrasound,Preg,Transabdomonal;Each Additional Gestation Completed 08/27/2019 54772 Ultrasound,Preg,Transabdomonal;Each Additional Gestation Completed 08/12/2019 73291 Echography Uterus Follow-Up Or Repeat Completed 07/27/2019 34376 Echography Uterus Follow-Up Or Repeat Completed 07/27/2019 13587 Ultrasound,Preg,Transabdomonal;Each Additional Gestation Completed 07/13/2019 63211 Ultrasound,Preg,Transabdomonal;Each Additional Gestation Completed 07/13/2019 56653 Echography Uterus Complete Completed 07/01/2019 00165 Echography Uterus Follow-Up Or Repeat Completed 07/01/2019 80978 Ultrasound,Preg,Transabdomonal;Each Additional Gestation Completed 06/16/2019 05721 Echography Uterus Follow-Up Or Repeat Completed 06/16/2019 09500 Ultrasound,Preg,Transabdomonal;Each Additional Gestation Completed Medical Devices Description No Information Available Encounters Type Date Location Provider Dx Diagnosis Office Visit 05/19/2019 [facility] Office Astrid Chandler, BETSEY Z36.9 Encounter for 11:00a screening, unspecified O30.001 Twin preg, unsp num plcnta & amnio sacs, first trimester Assessments Date Code Description Provider 11/11/2019 O30.033 Twin , monochorionic/diamniotic, Ultrasounds third [...] O30.032 Twin , monochorionic/diamniotic, Ultrasounds second trimester 05/19/2019 Z36.9 Encounter for screening, Astrid Chandler CNM unspecified 05/19/2019 O30.001 Twin , unspecified number of Astrid Chandler CNM placenta and unspecified number of amniotic sacs, first trimester Plan of Treatment Future Appointment(s):12/29/2019 3:30 pm - Kayli Boo MD at [facility]12/01/2019 11:00 am - Ruperto Prieto CNM at [facility]11/24/2019 7:45 am - Arron Hand M.D. at [facility] 11/24/2019 7:45 am - Kayli Boo MD at [place] [address]6411/19/2019 2:15 pm - Kayli Boo MD at [facility]2019 1:40 pm - Nurses at [facility] Functional Status Functional Condition Comment Date Status .None Active Mental Status Description No Information Available Referrals Refer to Reason for Referral Status Appt Date Center Pt with mono-di twins at 22 wks. Cardiac views Closed 09/17 have been inadequate for the past two sonos, so she needs a Level 2. [facility] [place].[phone]
--- OUTSIDE RECORDS SUMMARY | 2019-11-24 06:02 | XMS REPORT | Continuity of Care Document ---
:1995 External Reference #:[id number] Author Name Adelfo Chatman M.D. 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 Onset: 01/26/2014 Mild major depression, single episode Tiffanie Klein RPA-C Onset: 2014 Generalized anxiety disorder Tiffanie Klein RPA-C Onset: 12/22/2014 Social History Type Date Description Comments Sex Unknown Tobacco Use Reviewed: 09/29/19 Denies Cigarette Use Smoking Status Reviewed: 09/29/19 Denies Cigarette Use ETOH Use Denies alcohol use Recreational Drug Use Denies Drug Use Tobacco Use Start: Unknown Non Smoker Sun Exposure moderate amount of sun exposure Sun Exposure Uses sunscreen Seat Belt/Car Seat always uses seat belt Allergies, Adverse Reactions, Alerts Description No Known Drug Allergies Medications Active Medications SIG Qnty Indications Ordering Provider Date 19 1 by mouth every Unknown 09/28/2019 Tablets day Benzaclin apply to face Unknown 09/24/2018 1-5% Gel daily as directed Medications Administered in Office Medication SIG Qnty Indications Ordering Provider Date TB Intradermal Test Tiffanie Klein RPA-C 12/22/2014 Injection Immunizations CPT Code Status Date Vaccine Lot # [id number] Given 09/28/2019 Adacel or Boostrix, TDaP 69460 Given 05/06/2019 Influenza Virus Vaccine, Quadrivalent, Split, Preservative Free 93961 Given 05/28/2018 Influenza Virus Vaccine, Quadrivalent, Split, [id number] Preservative Free U-Flu Given 05/29/2017 Influenza,Unspecified 79927 Given 04/26/2017 Td Immunization [id number] 77124 Given 10/19/2013 Hep A, Adult [id number] 65950 Given 07/15/2013 Menactra Menningitis Vaccine [id number] 15721 Given 04/16/2013 Hep A, Ped/Adolscent, 2 Dose [id number] 69665 Given 05/30/2012 Flu, Split Virus 3Yrs [id number] 53381 Given 07/11/2011 Flu, Split Virus 3Yrs [id number] 77544 Given 06/14/2008 Menactra Menningitis Vaccine [id number] 42267 Given 06/14/2008 Flu, Split Virus 3Yrs [id number] 61153 Given 10/20/2007 Gardasil HPV vaccine [id number] 64799 Given 06/16/2007 Gardasil HPV vaccine [id number] 25822 Given 04/14/2007 Gardasil HPV vaccine [id number] 32964 Given 04/14/2007 Adacel or Boostrix, TDaP [id number] 20603 Given 04/14/2007 Varicella (Chicken Pox) Immunization [id number] 92192 Given 02/01/2000 Poliomyelitis Immunization 98258 Given 02/01/2000 MMR Virus Immunization 78056 Given 09/02/1999 Varicella (Chicken Pox) Immunization 70610 Given 07/03/1997 Measles & Rubella Immunization 43555 Given 04/02/1996 Dtap Immunization (Tripedia) (Infanrix) 79774 Given 04/02/1995 Dtap Immunization (Tripedia) (Infanrix) 25548 Given 04/02/1995 Poliomyelitis Immunization 67618 Given 04/02/1995 Hep B Immunization, Ped/Adolescent To 11 Yrs 58867 Given 01/31/1995 Poliomyelitis Immunization 55072 Given 01/31/1995 Dtap Immunization (Tripedia) (Infanrix) 93627 Given 1994 Poliomyelitis Immunization 38689 Given 1994 Dtap Immunization (Tripedia) (Infanrix) 47953 Given 1994 Hep B Immunization, Ped/Adolescent To 11 Yrs 21923 Given 1994 MMR Virus Immunization 26830 Given 1994 Hep B Immunization, Ped/Adolescent To 11 Yrs Vital Signs Date Vital Result Comment 09/29/2019 3:06pm BP Systolic 110 mmHg BP Diastolic 72 mmHg Body Temperature 98.8 F Height 63 inches 5'3" Weight 231.00 lb BMI (Body Mass Index) 40.9 kg/m2 07/28/2018 4:59pm BP Systolic 112 mmHg BP Diastolic 70 mmHg Body Temperature 98.4 F Weight 213.00 lb Results Description No Information Available Procedures Description No Information Available Medical Devices Description No Information Available Encounters Type Date Location Provider Dx Diagnosis Office Visit 09/29/2019 Main Office Adelfo Chatman T50.A15A Advrs effect of 3:00p M.DAlma pertuss vaccine, inc yusuf anderson M79.10 Myalgia, unspecified site Z68.41 Body mass index (BMI) 40.0-44.9, adult Assessments Date Code Description Provider 09/29/2019 T50.A15A Adverse effect of pertussis vaccine, Adelfo Chatman M.D. including combinations with a pertussis component, initial encounter 09/29/2019 M79.10 Myalgia, unspecified site Adelfo Chatman M.D. 09/29/2019 Z68.41 Body mass index (BMI) 40.0-44.9, adult Adelfo Chatman M.D. Plan of Treatment 09/29/2019 - Adelfo Chatman M.D.T50.A15A Adverse effect of pertussis vaccine, including combinations with a pertussis component, initial encounterComments: Given paucity of respiratory Sxs, lack of known sick contacts and Hx of having had flu vaccine this season and given aching>fever and that it all started hours after getting a TdaP vaccine I suspectthis is a vaccine reaction and not infectious concern. Advised Tylenol prn, expect Sxs to resolve over the next couple of days and to report back if this is not the case or if Sxs progressing.M79.10 Myalgia, unspecified siteZ68.41 Body mass index (BMI) 40.0- 44.9, adult Functional Status Description No Information Available Mental Status Description No Information Available Referrals Description No Information Available
--- OUTSIDE RECORDS SUMMARY | 2019-11-24 06:02 | XMS REPORT | Continuity of Care Document ---
:1995 External Reference #:[id number] Author Name Arron Hand M.D. (transmitted by agent of provider Cece Green) Address [address] [place] [address] Care Team Providers Name Role Phone Adriano Mak MD Care Team Information Production [employer] [phone] Adelfo Chatman M.D. - Family Care Team Information [employer] [phone] Medicine Problems Active Problems Provider Date Twin [...] SCRN Tbco Id as Non User Destiny Jump, ANP-C 02/24/2019 Injection No PT Tbco SCRN RNG Destiny Jump, ANP-C 02/20/2018 Injection PT SCRN Tbco Id as Non User Destiny Shona, ANP-C 02/20/2018 Injection Immunizations CPT Code Status Date Vaccine Lot # [id number] Given 09/28/2019 Tetnus, Diptheria Toxoids And Acellular Pertussis, DC924 PT > 7Yrs Old [id number] Given 06/16/2019 Influenza Vaccine Quadrivalent Preser/Antibiotic [id number] Free Im Use Vital Signs Date Vital Result Comment 05/19/2019 10:48am BP Systolic 108 mmHg BP Diastolic 66 mmHg Height 62.25 inches 5'2.25" Weight 218.00 lb BMI (Body Mass Index) 39.5 kg/m2 Last Menstrual Period 1176308 1 Parity 0 02/24/2019 7:44am BP Systolic 112 mmHg BP Diastolic 80 mmHg Height 62.25 inches 5'2.25" Weight 223.00 lb BMI (Body Mass Index) 40.5 kg/m2 Last Menstrual Period 7223899 0 Parity 0 Results Test Acquired Date Facility Test Result H/L Range Note Tot Prot 24HR 11/12/2019 [facility] Ur TP 11 mg/[place] [address] Concentration [phone] Obstetric Ur Tot Protein/24Hr Obstetric 280 mg/24Hr High 0-165 Urine Collection Time OB 24 hr Urine Total Volume OB 2550 mL Comp Metabolic 11/11/2019 [facility] Sodium 138 mmol/L Normal 135-145 [place] [address] [phone] Potassium 4.2 mmol/L Normal 3.5-5.0 Chloride 106 [...] Egfr 121.4 >60 1 Laboratory test 11/11/2019 [facility] Uric Acid 6.5 mg/dL Normal 2.3-6.6 2 [place] [address] [phone] CBC With No Diff 11/11/2019 [facility] White 6.3 Normal 3.5- 10.8 [place] [address] Blood 10^3/uL [phone] Count Red Blood Count 3.69 10^6/uL Low [...] fL Normal 7.4-10.4 CBC With No 09/14/2019 [facility] White Blood 8.2 10^3/uL Normal 3.5-10.8 [place] [address] Count [phone] Red Blood Count 3.60 10^6/uL Low 3.70-4.87 Hemoglobin 11.4 g/dL Low 12.0-16.0 Hematocrit 33 % Low 35-47 Mean Corpuscular Volume 92 fL Normal 80-97 Mean Corpuscular Hemoglobin 32 pg High 27-31 Mean Corpuscular HGB Conc 34 g/dL Normal 31-36 Red Cell Distribution Width 13 % Normal 10-15 Platelet Count 308 10^3/uL Normal 150-450 Mean Platelet Volume 8.6 fL Normal 7.4-10.4 Laboratory 09/14/2019 [facility] Glucose 1 HR 121 mg/dL Normal 70-160 3 [place] [address] Post Prandial [phone] Drug Screen 07/13/2019 [facility] Urine None [place] [address] Hydrocodone Detected Detect [facility] [phone] Screen Urine Oxycodone Screen None Detected None [...] Detected None Detect 4 GC/Chlamydia Dna 07/01/2019 [facility] GCCHL Disclaimer (SEE NOTE) [address] [place] [address] [phone] Chlamydia trachomatis Lachelle Negative Negative Neisseria gonorrhoeae (GC) Lachelle Negative Negative Laboratory test 07/01/2019 [facility] Miscellaneous Test See Comment [address] [place] [address] [phone] Panorama 06/16/2019 Andre Report Summary See Notes Normal 7 Test Report Note See Notes Normal Trisomy 13 Age-Based Risk Fraction <1/41165 Normal 8 Trisomy 13 Risk Score Text <1/10,000 (<0.01 <SEE NOTE> Normal 9 Trisomy 13 Risk Score Fraction <1/05825 Normal Trisomy 13 Result Text Low Risk Normal Trisomy 13 Result Comments See Notes Normal Trisomy 18 Age-Based Risk Fraction 09/7945 Normal Trisomy 18 Risk Score Text <1/10,000 (<0.01 <SEE NOTE> Normal 10 Trisomy 18 Risk Score Fraction <1/05191 Normal Trisomy 18 Result Text Low Risk Normal Trisomy 18 Result Comments See Notes Normal Trisomy 21 Age-Based Risk Fraction 09/3002 Normal Trisomy 21 Risk Score Text <1/10,000 (<0.01 <SEE NOTE> Normal 11 Trisomy 21 Risk Score Fraction <1/78747 Normal Trisomy 21 Result Text Low Risk Normal Trisomy 21 Result Comments See Notes Normal Monosomy X Age-Based Risk Fraction 09/1689 Normal Monosomy X Risk Score <0.01 % Normal Monosomy X Risk Score Text <1/10,000 (<0.01 <SEE NOTE> Normal 12 Monosomy X Risk Score Fraction <1/16193 Normal Monosomy X Result Text Low Risk [...] Contacts See Notes 18 Urine Culture 06/16/2019 [facility] Urine SEE RESULT 19 [place] [address] Culture BELOW Sensitivities [phone] HIV 1&2 p24 06/16/2019 [facility] HIV 4th [place] [address] Generation [phone] Lead 06/16/2019 [facility] Lead,Venous, 2.4 g/dL 0.0-4.9 20 [place] [address] B [phone] Venous/Capillary Venous Submitting Laboratory Phone [phone] Type And Screen 06/16/2019 [facility] Patient [place] [address] [phone] Antibody Screen NEGATIVE CBC With No 06/16/2019 [facility] White Blood 8.8 10^3/uL Normal 3.5-10.8 [place] [address] Count [phone] Red Blood Count 4.21 10^6/uL Normal 3.70-4.87 Hemoglobin 13.0 g/dL Normal 12.0-16.0 Hematocrit 38 % Normal 35-47 Mean Corpuscular Volume 90 fL Normal 80-97 Mean Corpuscular Hemoglobin 31 pg Normal 27-31 Mean Corpuscular HGB Conc 34 g/dL Normal 31-36 Red Cell Distribution Width 13 % Normal 10-15 Platelet Count 311 10^3/uL Normal 150-450 Mean Platelet Volume 8.4 fL Normal 7.4-10.4 PNL No 06/16/2019 [facility] Rubella Screen Immune Immune 22 [place] [address] [phone] Hemoglobin A1c 5.3 % Normal 4.0-5.6 23 Hepatitis B Surface Ag Nonreactive Nonreactive 24 Syphillis Igg W/Reflex RPR Negative Negative 25 Urine Culture And 05/19/2019 [facility] Urine Culture SEE RESULT 26 [place] [address] BELOW [phone] 1 Because ethnic data is not always [...] 5 Kidney failure <15 (or dialysis) 2 [id number] 3 [id number] 4 The specimen was tested at the [...] by client. Creatinine, U 9.8 mg/dL Specific [place] <=1.001 Manually Verified pH 7.1 Oxidants Negative [...] or an invalid specimen. Test Performed by: [address] [address] [employer] Admin: Jay Peng M.D. Ph.D.; CLIA# [id number] 7 LOW RISK 8 <1/10,000 (<0.01%) 9 [...] [Lauren et al. The [employer]. [place], [place]. January 26-2016]. However, ???some samples will not [...] appropriate. The Panorama test was developed by [facility] a laboratory certified under the Clinical Laboratory Improvement Amendments (CLIA). This test has not been cleared or approved by the U.S, Food and Drug Administration (FDA). 16 Please refer to the attached PDF report 17 Test performed by [facility]. [address] [place] [address] CLIA ID #[id number] Nara Garcia Ph.D., [facility], [employer] Instructor 18 IF THE ORDERING PROVIDER HAS QUESTIONS OR WISHES TO DISCUSS THE RESULTS, PLEASE CONTACT US AT [phone] #3. Ask for the NIPT genetic counselor professor of early childhood education. 19 SEE RESULT BELOW Name: RUPERTO VILA : [address]: Maksim Moise DO Acct: [id number] Unit: [id number] AGE: 23 Location: [facility] Re06/16/19 SEX: F Status: REG REF SPEC: [id number] JORGE LUIS: 06/16/[address]: Maksim Moise DO REQ: [id number] RECD: 06/16/19 STATUS: COMP _ SOURCE: URINE SPDESC: ORDERED: Urine Culture COMMENTS: [id number] Urine Source: Random Procedure Result Reported Site Urine Culture Final 06/17/19- 1621 ML No Growth (<1,000 CFU/mL) * ML - Main Lab . END OF REPORT DEPARTMENT OF PATHOLOGY, [address] [place] [address] Rio Rahman M.D. Director [facility] # [id number] 20 ADDITIONAL INFORMATION Testing performed by Inductively Coupled Plasma-Mass Spectrometry (ICP-MS). This test was developed and its performance characteristics determined by [facility] in a manner consistent with CLIA requirements. This test has not been cleared or approved by the U.S. Food and Drug Administration. 21 Test Performed by: [facility] [place] [address] Sharepoint Admin: Jay Peng M.D. Ph.D.; CLIA# [id number] 22 [id number] 23 Therapeutic target for the treatment of diabetes mellitus patients is <7% HBA1C, and in selective patients <6.0%. Please refer to [place] [employer] diabetic care guidelines for further information. 24 [id number] 25 [id number] 26 SEE RESULT BELOW Name: RUPERTO JETT : [address]: ZAF[place] Acct: [id number] Unit: [id number] AGE: 23 Location: [facility] Re05/19/19 SEX: F Status: REG REF SPEC: [id number] JORGE LUIS: 05/19/19-1144 [facility] DR: Astrid Chandler, ZAFAR REQ: [id number] RECD: 05/19/19 STATUS: COMP _ SOURCE: URINE SPDESC: ORDERED: Urine Culture COMMENTS: [id number] Urine Source: Random Procedure Result Reported Site Urine Culture Final 05/21/19- 09 ML Mixed upon extended incubation. Suggest resubmission. * ML - Main Lab . END OF REPORT DEPARTMENT OF PATHOLOGY, [address] [place] [address] Rio Rahman M.D. Director [facility] # [id number] Procedures Date Code Description Status 11/11/2019 00580 Biophysical Profile Without Non Stress Test Completed 11/11/2019 55491 Echography Uterus Follow-Up Or Repeat Completed 11/11/2019 63855 Ultrasound,Preg,Transabdomonal;Each Additional Gestation Completed 11/04/2019 66492 Non-Stress Test Completed 10/28/2019 83178 Biophysical Profile Without Non Stress Test Completed 10/28/2019 74824 Echography Uterus Follow-Up Or Repeat Completed 10/28/2019 54256 Ultrasound,Preg,Transabdomonal;Each Additional Gestation Completed 10/21/2019 93669 Non-Stress Test Completed 10/14/2019 17906 Echography Uterus Follow-Up Or Repeat Completed 10/14/2019 65005 Ultrasound,Preg,Transabdomonal;Each Additional Gestation Completed 09/28/2019 27673 Echography Uterus Follow-Up Or Repeat Completed 09/28/2019 35144 Ultrasound,Preg,Transabdomonal;Each Additional Gestation Completed 09/14/2019 77169 Nuchal Translucency Ultrasound /First Gestation Completed 09/14/2019 36503 Echography Uterus Follow-Up Or Repeat Completed 08/27/2019 35604 Echography Uterus Follow-Up Or Repeat Completed 08/27/2019 46888 Echography Uterus Follow-Up Or Repeat Completed 08/27/2019 74507 Ultrasound,Preg,Transabdomonal;Each Additional Gestation Completed 08/27/2019 82666 Ultrasound,Preg,Transabdomonal;Each Additional Gestation Completed 08/12/2019 22830 Echography Uterus Follow-Up Or Repeat Completed 07/27/2019 09957 Echography Uterus Follow-Up Or Repeat Completed 07/27/2019 83313 Ultrasound,Preg,Transabdomonal;Each Additional Gestation Completed 07/13/2019 95839 Ultrasound,Preg,Transabdomonal;Each Additional Gestation Completed 07/13/2019 08284 Echography Uterus Complete Completed 07/01/2019 59462 Echography Uterus Follow-Up Or Repeat Completed 07/01/2019 00627 Ultrasound,Preg,Transabdomonal;Each Additional Gestation Completed 06/16/2019 92945 Echography Uterus Follow-Up Or Repeat Completed 06/16/2019 46647 Ultrasound,Preg,Transabdomonal;Each Additional Gestation Completed Medical Devices Description No Information Available Encounters Type Date Location Provider Dx Diagnosis Office Visit 05/19/2019 [facility] Astrid Chandler CNM Z36.9 Encounter for 11:00a screening, unspecified O30.001 [...] 3:30 pm - Kayli Boo MD at [facility]12/01/2019 11:00 am - Ruperto Prieto CNM at [facility]11/24/2019 7:45 am - Arron Hand M.D. at [place] 0417611/24/2019 7:45 am - Kayli Boo MD at [place] 0417611/19/2019 2:15 pm - Kayli Boo MD at [facility]2019 1:40 pm - Nurses at [facility] Functional Status Functional Condition Comment Date Status .None Active Mental Status Description No Information Available Referrals Refer to Reason for Referral Status Appt Date Center Pt with mono-di twins at 22 wks. Cardiac views Closed 09/17 have been inadequate for the past two sonos, so she needs a Level 2. 90 [facility] [place].[address] [phone]
--- OUTSIDE RECORDS SUMMARY | 2019-11-24 06:02 | XMS REPORT | Continuity of Care Document ---
:1995 External Reference #:[id number] Author Name Ultrasounds (transmitted by agent of provider Cece Green) Address [address] [place] [address] Care Team Providers Name Role Phone Adriano Mak MD Care Team Information [facility]oon [employer]pper [phone] Adelfo Chatman M.D. - Family Care Team Information [facility]oon [facility] Medicine Problems Active Problems Provider Date Twin [...] CPT Code Status Date Vaccine Lot # [id number] Given 09/28/2019 Tetnus, Diptheria Toxoids And Acellular Pertussis, DC924 PT > 7Yrs Old [address] Given 06/16/2019 Influenza Vaccine Quadrivalent Preser/Antibiotic [id number] Free Im Use Vital Signs Date Vital Result Comment 05/19/2019 10:48am BP Systolic 108 mmHg BP Diastolic 66 mmHg Height 62.25 inches 5'2.25" Weight 218.00 lb BMI (Body Mass Index) 39.5 kg/m2 Last Menstrual Period 7918153 1 Parity 0 02/24/2019 7:44am BP Systolic 112 mmHg BP Diastolic 80 mmHg Height 62.25 inches 5'2.25" Weight 223.00 lb BMI (Body Mass Index) 40.5 kg/m2 Last Menstrual Period 6509458 0 Parity 0 Results Test Acquired Date Facility Test Result H/L Range Note Tot Prot 24HR 11/12/2019 [facility] Ur TP 11 mg/[place] [address] Concentration [phone] Obstetric Ur Tot Protein/24Hr Obstetric 280 mg/24Hr High 0-165 Urine Collection Time OB 24 hr Urine Total Volume OB 2550 mL Comp Metabolic 11/11/2019 [facility] Sodium 138 mmol/L Normal 135-145 [place] [address] [phone] Potassium 4.2 mmol/L Normal 3.5-5.0 Chloride 106 [...] Egfr 121.4 >60 1 Laboratory test 11/11/2019 [facility] Uric Acid 6.5 mg/dL Normal 2.3-6.6 2 [place] [address] [phone] CBC With No Diff 11/11/2019 [facility] White 6.3 Normal 3.5- 10.8 [place] [address] Blood 10^3/uL [phone] Count Red Blood Count 3.69 10^6/uL Low [...] fL Normal 7.4-10.4 CBC With No 09/14/2019 [facility] White Blood 8.2 10^3/uL Normal 3.5-10.8 [place] [address] Count [phone] Red Blood Count 3.60 10^6/uL Low 3.70-4.87 Hemoglobin 11.4 g/dL Low 12.0-16.0 Hematocrit 33 % Low 35-47 Mean Corpuscular Volume 92 fL Normal 80-97 Mean Corpuscular Hemoglobin 32 pg High 27-31 Mean Corpuscular HGB Conc 34 g/dL Normal 31-36 Red Cell Distribution Width 13 % Normal 10-15 Platelet Count 308 10^3/uL Normal 150-450 Mean Platelet Volume 8.6 fL Normal 7.4-10.4 Laboratory 09/14/2019 [facility] Glucose 1 HR 121 mg/dL Normal 70-160 3 [place] [address] Post Prandial [phone] Drug Screen 07/13/2019 [facility] Urine None [place] [address] Hydrocodone Detected Detect [facility] [phone] Screen Urine Oxycodone Screen None Detected None [...] Detected None Detect 4 GC/Chlamydia Dna 07/01/2019 [facility] GCCHL Disclaimer (SEE NOTE) 5 Probe FLEX [place] [phone] Chlamydia trachomatis Lachelle Negative Negative Neisseria gonorrhoeae (GC) Lachelle Negative Negative Laboratory test 07/01/2019 [facility] Miscellaneous Test See Comment 6 finding FLEX [place] [address] [phone] Panorama 06/16/2019 [facility] Report Summary See Notes Normal 7 Test Report Note See Notes Normal Trisomy 13 Age-Based Risk Fraction <1/07837 Normal 8 Trisomy 13 Risk Score Text <1/10,000 (<0.01 <SEE NOTE> Normal 9 Trisomy 13 Risk Score Fraction <1/74429 Normal Trisomy 13 Result Text Low Risk Normal Trisomy 13 Result Comments See Notes Normal Trisomy 18 Age-Based Risk Fraction 09/7945 Normal Trisomy 18 Risk Score Text <1/10,000 (<0.01 <SEE NOTE> Normal 10 Trisomy 18 Risk Score Fraction <1/87493 Normal Trisomy 18 Result Text Low Risk Normal Trisomy 18 Result Comments See Notes Normal Trisomy 21 Age-Based Risk Fraction 09/3002 Normal Trisomy 21 Risk Score Text <1/10,000 (<0.01 <SEE NOTE> Normal 11 Trisomy 21 Risk Score Fraction <1/86225 Normal Trisomy 21 Result Text Low Risk Normal Trisomy 21 Result Comments See Notes Normal Monosomy X Age-Based Risk Fraction 09/1689 Normal Monosomy X Risk Score <0.01 % Normal Monosomy X Risk Score Text <1/10,000 (<0.01 <SEE NOTE> Normal 12 Monosomy X Risk Score Fraction <1/72702 Normal Monosomy X Result Text Low Risk [...] Contacts See Notes 18 Urine Culture 06/16/2019 [facility] Urine SEE RESULT 19 [place] [address] Culture BELOW Sensitivities [phone] HIV 1&2 p24 06/16/2019 [facility] HIV 4th Non[place] [address] Generation [phone] Lead 06/16/2019 [facility] Lead,Venous, 2.4 g/dL 0.0-4.9 20 [place] [address] B [phone] Venous/Capillary Venous Submitting Laboratory Phone [phone] Type And Screen 06/16/2019 [facility] Patient [place] [address] [phone] Antibody Screen NEGATIVE CBC With No 06/16/2019 [facility] White Blood 8.8 10^3/uL Normal 3.5-10.8 [place] [address] Count [phone] Red Blood Count 4.21 10^6/uL Normal 3.70-4.87 Hemoglobin 13.0 g/dL Normal 12.0-16.0 Hematocrit 38 % Normal 35-47 Mean Corpuscular Volume 90 fL Normal 80-97 Mean Corpuscular Hemoglobin 31 pg Normal 27-31 Mean Corpuscular HGB Conc 34 g/dL Normal 31-36 Red Cell Distribution Width 13 % Normal 10-15 Platelet Count 311 10^3/uL Normal 150-450 Mean Platelet Volume 8.4 fL Normal 7.4-10.4 PNL No 06/16/2019 [facility] Rubella Screen Immune Immune 22 [place] [address] [phone] Hemoglobin A1c 5.3 % Normal 4.0-5.6 23 Hepatitis B Surface Ag Nonreactive Nonreactive 24 Syphillis Igg W/Reflex RPR Negative Negative 25 Urine Culture And 05/19/2019 [facility] Urine Culture SEE RESULT 26 [place] [address] BELOW [phone] 1 Because ethnic data is not always [...] 5 Kidney failure <15 (or dialysis) 2 [id number] 3 [id number] 4 The specimen was tested at the [...] by client. Creatinine, U 9.8 mg/dL Specific [place] <=1.001 Manually Verified pH 7.1 Oxidants Negative [...] or an invalid specimen. Test Performed by: [place] [address] Printed Circuit Board Preassembler: Jay Peng M.D. Ph.D.; CLIA# [id number] 7 LOW RISK 8 <1/10,000 (<0.01%) 9 [...] [Lauren et al. The Human [employer]etics Conference. [place], [place]. January 26-2016]. However, ???some samples will not [...] appropriate. The Panorama test was developed by [facility] a laboratory certified under the Clinical Laboratory Improvement Amendments (CLIA). This test has not been cleared or approved by the U.S, Food and Drug Administration (FDA). 16 Please refer to the attached PDF report 17 Test performed by [facility] [address] [place] [address] CLIA ID #[id number] Nara Garcia Ph.D., [facility], Retail Field Supervisor 18 IF THE ORDERING PROVIDER HAS QUESTIONS OR WISHES TO DISCUSS THE RESULTS, PLEASE CONTACT US AT [phone] #3. Ask for the NIPT genetic counselor fashion show director. 19 SEE RESULT BELOW Name: RUPERTO VILA : [address]: Maksim Moise DO Acct: [id number] Unit: [id number] AGE: 23 Location: [facility] Re06/16/19 SEX: F Status: REG REF SPEC: [id number] JORGE LUIS: 06/16/[address]: Maksim Moise DO REQ: [id number] RECD: 06/16/19 STATUS: COMP _ SOURCE: URINE SPDESC: ORDERED: Urine Culture COMMENTS: [id number] Urine Source: Random Procedure Result Reported Site Urine Culture Final 06/17/19- 1621 ML No Growth (<1,000 CFU/mL) * ML - Main Lab . END OF REPORT DEPARTMENT OF PATHOLOGY, [address] [place] [address] Rio Rahman M.D. Director [facility] # [id number] 20 ADDITIONAL INFORMATION Testing performed by Inductively Coupled Plasma-Mass Spectrometry (ICP-MS). This test was developed and its performance characteristics determined by [facility] in a manner consistent with CLIA requirements. This test has not been cleared or approved by the U.S. Food and Drug Administration. 21 Test Performed by: [facility] [address] [place] [address] Printed Circuit Board Preassembler: Jay Peng M.D. Ph.D.; CLIA# [id number] 22 [id number] 23 Therapeutic target for the treatment of diabetes mellitus patients is <7% HBA1C, and in selective patients <6.0%. Please refer to [place] [employer] diabetic care guidelines for further information. 24 [id number] 25 [id number] 26 SEE RESULT BELOW Name: RUPERTO JETT : [address]: Astrid Chandler CNM Acct: [id number] Unit: [id number] AGE: 23 Location: [facility] Re05/19/19 SEX: F Status: REG REF SPEC: [id number] JORGE LUIS: 05/19/19-[address] [facility] [address]: [place] REQ: [id number] RECD: 05/19/19 STATUS: COMP _ SOURCE: URINE [facility]: ORDERED: Urine Culture COMMENTS: [id number] Urine Source: Random Procedure Result Reported Site Urine Culture Final 05/21/19- 09 ML Mixed upon extended incubation. Suggest resubmission. * ML - Main Lab . END OF REPORT DEPARTMENT OF PATHOLOGY, [address] [place] [address] Rio Rahman M.D. Director [facility] # [id number] Procedures Date Code Description Status 11/11/2019 38294 Biophysical Profile Without Non Stress Test Completed 11/11/2019 05335 Echography Uterus Follow-Up Or Repeat Completed 11/11/2019 44395 Ultrasound,Preg,Transabdomonal;Each Additional Gestation Completed 11/04/2019 04999 Non-Stress Test Completed 10/28/2019 84327 Biophysical Profile Without Non Stress Test Completed 10/28/2019 72150 Echography Uterus Follow-Up Or Repeat Completed 10/28/2019 99397 Ultrasound,Preg,Transabdomonal;Each Additional Gestation Completed 10/21/2019 77373 Non-Stress Test Completed 10/14/2019 90055 Echography Uterus Follow-Up Or Repeat Completed 10/14/2019 37553 Ultrasound,Preg,Transabdomonal;Each Additional Gestation Completed 09/28/2019 68395 Echography Uterus Follow-Up Or Repeat Completed 09/28/2019 35568 Ultrasound,Preg,Transabdomonal;Each Additional Gestation Completed 09/14/2019 19595 Nuchal Translucency Ultrasound /First Gestation Completed 09/14/2019 76998 Echography Uterus Follow-Up Or Repeat Completed 08/27/2019 76845 Echography Uterus Follow-Up Or Repeat Completed 08/27/2019 33524 Echography Uterus Follow-Up Or Repeat Completed 08/27/2019 52857 Ultrasound,Preg,Transabdomonal;Each Additional Gestation Completed 08/27/2019 19221 Ultrasound,Preg,Transabdomonal;Each Additional Gestation Completed 08/12/2019 28794 Echography Uterus Follow-Up Or Repeat Completed 07/27/2019 51937 Echography Uterus Follow-Up Or Repeat Completed 07/27/2019 32992 Ultrasound,Preg,Transabdomonal;Each Additional Gestation Completed 07/13/2019 78463 Ultrasound,Preg,Transabdomonal;Each Additional Gestation Completed 07/13/2019 97221 Echography Uterus Complete Completed 07/01/2019 36451 Echography Uterus Follow-Up Or Repeat Completed 07/01/2019 26737 Ultrasound,Preg,Transabdomonal;Each Additional Gestation Completed 06/16/2019 83329 Echography Uterus Follow-Up Or Repeat Completed 06/16/2019 21646 Ultrasound,Preg,Transabdomonal;Each Additional Gestation Completed Medical Devices Description No Information Available Encounters Type Date Location Provider Dx Diagnosis Office Visit 05/19/2019 [facility] Office Astrid Chandler CNM Z36.9 Encounter for 11:00a [...] 3:30 pm - Kayli Boo MD at [facility]12/01/2019 11:00 am - Ruperto Prieto CNM at [facility]11/24/2019 7:45 am - Arron Hand M.D. at [facility] O 11/24/2019 7:45 am - Kayli Boo MD at [place] [address]11/19/2019 2:15 pm - Kayli Boo MD at [facility]2019 1:40 pm - Nurses at [facility] Functional Status Functional Condition Comment Date Status .None Active Mental Status Description No Information Available Referrals Refer to Reason for Referral Status Appt Date Center Pt with mono-di twins at 22 wks. Cardiac views Closed 09/17 have been inadequate for the past two sonos, so she needs a Level 2. [address] [facility] [phone]
[2019-11-24] MEDS ORDERED: LACTATED RINGERS 1000 ML/HR *Bolus IV ONE (07:00)
[2019-11-24] MEDS ORDERED: Sodium Citrate/Citric Acid* 15 ML UDC PO ONE (07:00)
[2019-11-24] MEDS ORDERED: ceFOXitin 2 GM IVPREMIX* 2 GM/50 ML BAG IVPB ONE (07:00)
[2019-11-24 07:56] LABS: Urine Benzodiazepine Screen None Detected (None Detect); Urine Buprenorphine Screen None Detected (None Detect); Urine Fentanyl Screen None Detected (None Detect); Urine Hydrocodone Screen None Detected (None Detect); Urine Opiates Screen None Detected (None Detect)
[2019-11-24] MEDS ORDERED: Morphine PF AMP (0.5MG/ML)* 5 MG/10 ML AMP ONE (08:01)
[2019-11-24] MEDS ORDERED: Ketorolac INJ* 30 MG/ML 1 ML VIAL ONE (08:59)
[2019-11-24] MEDS ORDERED: OXYTOCIN* 10 UNITS/ML 1 ML VIAL ONE (08:59)
[2019-11-24] MEDS ORDERED: EPHEDrine (Pressors)* 50 MG/ML VIAL ONE (08:59)
[2019-11-24] MEDS ORDERED: HYDROcodone/ACETAMIN 5-325 MG* 1 TAB PO PRN (09:10)
[2019-11-24] MEDS ORDERED: Naloxone* 0.4 MG/ML 1 ML VIAL IV PRN (09:10)
[2019-11-24] MEDS ORDERED: Acetaminophen TAB* 325 MG PO PRN (09:10)
[2019-11-24] MEDS ORDERED: Witch Hazel PAD* JAR TOPICAL PRN (10:24)
[2019-11-24] MEDS ORDERED: Glycerin ADULT SUPP PR PRN (10:24)
[2019-11-24] MEDS ORDERED: Dibucaine 1% 28.35 GM TUBE PR PRN (10:24)
[2019-11-24] MEDS ORDERED: Oxytocin in LR* 20 UNITS/1,000 ML BAG IVPB SCH (11:00)
[2019-11-24] MEDS ORDERED: Lactated Ringers 1000 ML Bag* 1,000 ML IV SCH (11:00)
[2019-11-24] MEDS ORDERED: Labetalol IV* 5 MG/ML 20 ML VIAL IV PUSH ONE (12:00)
--- NOTE | 2019-11-24 12:18 | OP ---
DATE OF OPERATION: 11/24/19 - ROOM #117 DATE OF : [birth year] SURGEON: Kayli Boo MD JUNIOR GRAPHIC DESIGNER: Arron Hand MD ANESTHESIOLOGIST: Dr. Ford. ANESTHESIA: Spinal. PRE-OP DIAGNOSES: Gestational hypertension, 37 weeks, twin gestation, monochorionic diamniotic. POST-OP DIAGNOSES: Gestational hypertension, 37 weeks, twin gestation, monochorionic diamniotic, delivered. OPERATIVE PROCEDURE: Primary low transverse section. ESTIMATED BLOOD LOSS: 700 cc. URINE OUTPUT: 300 cc of clear yellow urine. IV FLUIDS: 2800 cc of crystalloid. FINDINGS: Revealed twin A breech left sacrum anterior, weight 5 pounds 4 ounces ; twin B vertex, weight 4 pounds 11 ounces. Apgars for twin A 9 at one minute, 9 at five minutes, twin B 9 at one minute 9 at five minutes. Placenta was monochorionic diamniotic three- vessel cord. On each cord, fused placental bed. Normal-appearing tubes and ovaries bilaterally. Normal uterine cavity without evidence of retained membranes or placental tissue. COMPLICATIONS: None apparent. DISPOSITION: Stable to recovery room. DESCRIPTION OF PROCEDURE: The patient was placed on dorsal lithotomy position. Anesthesia was tested to appropriate level. Incision was made after confirmation with universal protocol for correct position, patient, and procedure. Incision was made with scalpel 2 fingerbreadths above the pubic symphysis. This was carried down to the fascia. Fascia was scored in the midline and extended laterally inferiorly using Painter scissors, sharply and bluntly with Painter scissors superiorly and inferiorly. Peritoneum was then bluntly entered and extended bluntly. The bladder blade was inserted. Lower uterine segment was identified, tented up with an Allis. Incision was made with scalpel, this was carried down through the membranes. Uterine incision was extended laterally and superiorly using bandage scissors. Baby A was found to be left sacrum anterior, king breech. The buttocks were delivered , then right, then left shoulder, head delivered spontaneously, no nuchal cord, no meconium. Cord was milked, clamped, and the infant was handed off to awaiting instructional support specialist. The second baby was found to be vertex and amniotomy was created for clear fluid. Head was delivered anterior posterior, shoulder delivered. Cord was milked, clamped, and the was handed off to awaiting instructional support specialist. Appropriate cord blood was then obtained. Placenta was delivered manually, three-vessel cord and intact. Uterine cavity was explored, noted to be free of any membranes or placental tissue. Uterus was exteriorized , wrapped in warm moist laparotomy sponge. Tubes and ovaries were noted to have a normal appearance. The incision was clamped with broad Allis and the incision itself was reapproximated in 2 layers, first layer running locked 0 Vicryl, second layer running imbricated 0 Vicryl. Uterus was returned intra- abdominally. Colic gutters were lavaged. Hemostasis was assured at the hysterotomy site. The peritoneum was then reapproximated using 3-0 Vicryl in a running fashion. Subfascial area was visualized, noted to be hemostatic, and the fascia itself was reapproximated using 0 Vicryl x2. Subcutaneous tissue was then reapproximated using 3-0 Vicryl in interrupted fashion. The skin was then reapproximated using 4-0 Monocryl in a subcuticular fashion. Mastisol and Steri's were applied. All sponge, needles, and blade counts were correct throughout the case. The patient tolerated procedure well and went to recovery room in stable condition. [id number]/[facility] #: [id number] [facility]ENTER[facility]jah
[2019-11-24] MEDS: Ondansetron INJ* 2 MG/ML VIAL IV PRN ×2 (14:13→20:29)
[2019-11-24] MEDS: Ketorolac INJ* 30 MG/ML 1 ML VIAL IV PRN ×2 (15:59→22:12)
[2019-11-24] MEDS: Simethicone TAB* 80 MG TAB.CHEW PO SCH ×2 (19:06→22:12)
[2019-11-24] MEDS: Docusate CAP* 100 MG PO SCH ×2 (19:07→22:12)
[2019-11-25] MEDS ORDERED: Ketorolac INJ* 30 MG/ML 1 ML VIAL IV PRN (01:06)
[2019-11-25 05:46] LABS: ABS Basophils 0.1 10^3/ul (0-0.2); ABS Eosinophils 0.1 10^3/ul (0-0.6); ABS Lymphocytes 1.4 10^3/ul (1.0-4.8); ABS Monocytes 0.5 10^3/ul (0-0.8); ABS Neutrophils 7.3 10^3/ul (1.5-7.7); Hematocrit 27 % (35-47); Hemoglobin 9.2 g/dL (12.0-16.0); Lymphocyte % 14.6 %; Mean Corpuscular HGB Conc 34 g/dL (31-36); Mean Corpuscular Hemoglobin 29 pg (27-31); Mean Corpuscular Volume 85 fL (80-97); Mean Platelet Volume 8.7 fL (7.4-10.4); Platelet Count 215 10^3/uL (150-450); Red Blood Count 3.22 10^6 /uL (3.70-4.87); Red Cell Distribution Width 14 % (10-15); White Blood Count 9.3 10^3/uL (3.5-10.8)
[2019-11-25] MEDS: Simethicone TAB* 80 MG TAB.CHEW PO SCH ×3 (09:42→20:38)
[2019-11-25] MEDS: Prenatal Vitamin TAB PO SCH (09:42)
[2019-11-25] MEDS: Ferrous Gluconate TAB* 324 MG TAB PO SCH ×2 (09:42→20:38)
[2019-11-25] MEDS: Docusate CAP* 100 MG PO SCH ×3 (09:42→20:38)
[2019-11-25] MEDS: Ibuprofen TAB* 600 MG PO PRN ×2 (11:00→17:41)
[2019-11-25] MEDS ORDERED: oxyCODONE TAB* 5 MG TAB PO PRN (17:40)
[2019-11-25] MEDS: Acetaminophen TAB* 325 MG PO PRN (20:38)
[2019-11-26] MEDS: Ibuprofen TAB* 600 MG PO PRN ×3 (04:10→17:50)
[2019-11-26] MEDS: Acetaminophen TAB* 325 MG PO PRN ×2 (04:11→08:45)
[2019-11-26] MEDS: Docusate CAP* 100 MG PO SCH ×3 (08:46→21:00)
[2019-11-26] MEDS: Simethicone TAB* 80 MG TAB.CHEW PO SCH ×4 (08:46→20:04)
[2019-11-26] MEDS: Ferrous Gluconate TAB* 324 MG TAB PO SCH ×2 (08:46→20:03)
[2019-11-26] MEDS: Prenatal Vitamin TAB PO SCH (08:46)
[2019-11-26 19:47] VITALS: BP 136/86
[2019-11-27] MEDS: Ibuprofen TAB* 600 MG PO PRN ×3 (00:06→13:09)
[2019-11-27] MEDS: Ferrous Gluconate TAB* 324 MG TAB PO SCH (07:24)
[2019-11-27] MEDS: Simethicone TAB* 80 MG TAB.CHEW PO SCH (07:24)
[2019-11-27] MEDS: Docusate CAP* 100 MG PO SCH (07:24)
[2019-11-27] MEDS: Prenatal Vitamin TAB PO SCH (07:24)
== END 2019-11-27 13:30 | disposition home or self-care (01) | DRG 788 ==
LOC: MCHOB 05:58
PROVIDERS: ADMIT Obstetrics & Gynecology; ATTEND Obstetrics & Gynecology
PROC: 10D00Z1 Extraction of Products of Conception, Low, Open Approach (ICD-10-PCS; principal; 2019-11-24 07:45)
DX: O32.8XX1 Maternal care for other malpresentation of fetus, fetus 1 (principal); O13.4 Gestational [pregnancy-induced] hypertension without significant proteinuria, complicating childbirth; O99.344 Other mental disorders complicating childbirth; F41.9 Anxiety disorder, unspecified; Z3A.37 37 weeks gestation of pregnancy; Z37.2 Twins, both liveborn; O30.039 Twin pregnancy, monochorionic/diamniotic, unspecified trimester
CPT/HCPCS: 36415; 80307; 85025; A9270-GY; G0480; J0694; J1885; J2405; J2590